=== PATIENT | female | born 1945 | race Caucasian/White ===

== ENCOUNTER 2018-02-07 14:31 | Emergency (ER) | payer MEDICARE, BC ==
[~2018-02-07] VITALS: Ht 154.9 cm; Wt 56.7 kg
[~2018-02-07 14:31] MED LIST: AVONEX30 MCG/0.1 IM; AZATHIOPRINE50 MG PO; AZITHROMYCIN250 MG PO; BACLOFEN10 MG PO; CHERATUSSIN AC118 ML PO; CLARITIN10 M2 PO; CLINDAMYCIN HC300 MG PO; COMBIVENT INH14.7 GM INH; COMBIVENT RESPIM4 GM INH; DIFLUCAN150 MG PO; ESTRADIOL1 MG PO; FUROSEMIDE20 MG PO; HYDROCODON-ACE1 EAC3 PO; IBUPROFEN200 M1 PO; K-TAB10 MEQ; KEFLEX250 MG PO; KLOR-CON 1010 MEQ PO; LEVAQUIN500 MG; LEVAQUIN500 MG PO; LORATADINE10 MG PO; METOCLOPRAMIDE H5 MG PO; MISOPROSTOL200 MCG PO; MUPIROCIN22 GM TOP; NEURONTIN300 MG PO; NEXIUM40 MG PO; NORCO 5-325 TA1 EACH PO; PREDNISONE20 MG PO; PREDNISONE5 MG PO; QVAR7.3 G1 IH; QVAR7.3 G1 INH; REGLAN5 MG PO; SUDOGEST60 MG PO; TRAZODONE HCL150 MG PO; VITAMIN D2000 UNI1 PO; ZITHROMAX250 MG PO
[2018-02-07] MEDS ORDERED: FAMOTIDINE40 MG PO (16:04)
[2018-02-07] MEDS ORDERED: GABAPENTIN300 MG PO (16:05)
[2018-02-07] MEDS ORDERED: ATORVASTATIN CA10 MG PO (16:05)
== END 2018-02-07 16:15 | disposition home or self-care (01) ==
LOC: ED 14:31
DX: S09.90XA Unspecified injury of head, initial encounter (principal); Z87.891 Personal history of nicotine dependence; Z88.2 Allergy status to sulfonamides; Z88.1 Allergy status to other antibiotic agents; Z79.899 Other long term (current) drug therapy; Z79.52 Long term (current) use of systemic steroids; W18.30XA Fall on same level, unspecified, initial encounter
CPT/HCPCS: 70450; 99284

== ENCOUNTER 2018-10-24 11:53 | Emergency (ER) | payer MEDICARE, BC ==
[~2018-10-24] VITALS: Ht 154.9 cm; Wt 58.8 kg
[~2018-10-24 11:53] MED LIST changes: +ACID CONTROL150 MG PO; +ALENDRONATE SOD70 MG PO; +ALEVE220 M1 PO; +ATORVASTATIN CA10 MG PO; +CALCIUM + VITA1 EACH PO; +DILTIAZEM 24HR240 M3 PO; +FAMOTIDINE40 MG PO; +FLUTICASONE PRO16 GM NAS; +GABAPENTIN300 MG PO; +IPRAT-ALBUT 0.5-3 ML INH; +LEVOFLOXACIN250 MG PO; +MAGNESIUM250 M1 PO; +MONTELUKAST SOD10 MG PO; +OLOPATADINE HC2.5 ML OU; +OXYBUTYNIN CHLOR5 M1 PO; +PREDNISONE10 MG PO; +VITAMIN B-122500 MCG PO
--- OUTSIDE RECORDS SUMMARY | 2018-10-24 11:58 | XMS ---
PreManage Notification: MALIHA MAY Security Panelboard Operator Events No recent Security Events currently on file CRITERIA MET - [facility] - 2 Visits in 30 Days CARE PROVIDERS Dann Gonzales MD Primary Care Current PHONE: [phone] ordanilo Case or Magnetic Doctor Current PHONE: Unknown Hero has no Care Guidelines for this patient. Ke VISIT COUNT (12 MO.) [address] [place] [address] TOTAL 3 NOTE: Visits indicate total known visits. ED/UCC VISIT TRACKING (12 MO.) 10/24/2018 11:54 [facility] [place] TYPE: Emergency COMPLAINT: - SOB,RAPID HEARTRATE 09/24/2018 00:02 [facility] [place] TYPE: Emergency COMPLAINT: - ALT LOC 02/07/2018 14:32 [facility] [place] TYPE: Emergency COMPLAINT: - FALL DIAGNOSES: - Unspecified injury of head, initial encounter - Personal history of nicotine dependence - Allergy status to sulfonamides status - Allergy status to other antibiotic agents status - Other senior care (current) drug therapy - Fall on same level, unspecified, initial encounter - terminal carman (current) use of systemic steroids INPATIENT VISIT TRACKING (12 MO.) 09/24/2018 04:[address] [facility] OR TYPE: Medical Surgical COMPLAINT: - SEVERE SEPSIS DIAGNOSES: - Other technician terminal and repeater (current) drug therapy - 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 - Sepsis due to Escherichia coli [E. coli] - Essential (primary) hypertension - Severe sepsis without septic shock - Rheumatic tricuspid insufficiency - Ventricular premature depolarization - Sepsis due to Escherichia coli [E. coli] - Supraventricular tachycardia - Metabolic encephalopathy - Neuromuscular dysfunction of bladder, unspecified - Neuromuscular dysfunction of bladder, unspecified - Essential (primary) hypertension - Atrial premature depolarization - 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 - Metabolic encephalopathy - FPC (current) use of inhaled steroids - Rheumatic tricuspid insufficiency - Allergy status to other antibiotic agents status - FPC (current) use of non-steroidal anti-inflammatories (NSAID) - Allergy status to other antibiotic agents status - Acute kidney failure, unspecified - Multiple sclerosis - Infection and inflammatory reaction due to other urinary catheter, initial encounter - Gastro-esophageal reflux disease without esophagitis - Supraventricular tachycardia - Allergy status to sulfonamides status - Other senior care (current) drug therapy - Acute kidney failure, unspecified - terminal carman (current) use of inhaled steroids - Severe sepsis without septic shock - Sepsis, unspecified organism - terminal carman (current) use of systemic steroids - Ventricular premature depolarization - FPC (current) use of systemic steroids - Atrial premature depolarization - Multiple sclerosis - Allergy status to sulfonamides status - Gastro-esophageal reflux disease without esophagitis - Acute cystitis without hematuria - FPC (current) use of non-steroidal anti-inflammatories (NSAID) - Acute cystitis without hematuria [email or web address]
[2018-10-24] MEDS ORDERED: FAMOTIDINE40 MG PO (14:27)
[2018-10-24] MEDS ORDERED: OMEPRAZOLE20 MG PO (14:27)
[2018-10-24] MEDS ORDERED: LORATADINE10 MG PO (14:28)
[2018-10-24] MEDS ORDERED: AUGMENTIN 875-1 EACH PO (16:04)
--- NOTE | 2018-10-26 00:52 | EKG ---
[facility] [address] [place] [address] Signed Sinus tachycardia Right bundle branch block Cannot rule out Inferior infarct , age undetermined Abnormal ECG When compared with ECG of 24-SEP-2018 04:22, No significant change was found Confirmed by GREG CRUZ MD ([id number]) on 10/26/2018 12:51:58 AM Electronically Signed By: GREG CRUZ MD 10/26/18 0052 PATIENT NAME: MALIHA MAY Electrocardiogram DATE OF : 41 PHYSICIAN: GREG CRUZ MD REPORT #: [id number] REPORT IS CONFIDENTIAL AND NOT TO BE RELEASED WITHOUT AUTHORIZATION
== END 2018-10-24 16:25 | disposition home or self-care (01) ==
LOC: ED 11:53
DX: L08.9 Local infection of the skin and subcutaneous tissue, unspecified (principal); Z87.891 Personal history of nicotine dependence; Z88.2 Allergy status to sulfonamides; Z88.1 Allergy status to other antibiotic agents; Z79.899 Other long term (current) drug therapy; Z79.52 Long term (current) use of systemic steroids
CPT/HCPCS: 51701; 71045; 80053; 81001; 83605; 83880; 84484; 85025; 87040; 87077; 87088; 87186; 87502; 93005; 93010; 96360; 99285-25; J7030

== ENCOUNTER 2018-10-25 22:06 | Inpatient (IN) | payer MEDICARE, BC ==
[~2018-10-25] VITALS: Ht 154.9 cm; Wt 60.0 kg
[~2018-10-25 22:06] MED LIST changes: +AUGMENTIN 875-1 EACH PO; +OMEPRAZOLE20 MG PO
--- OUTSIDE RECORDS SUMMARY | 2018-10-25 22:12 | XMS ---
PreManage Notification: MALIHA MAY Security Boiler Erector Events No recent Security Events currently on file CRITERIA MET - [facility] - 2 Visits in 30 Days CARE PROVIDERS DOTTIE [facility] Hospitalist 10/24/2018-Current PHONE: Unknown Dann Gonzales MD Primary Care Current PHONE: [phone] emily Case or Soft Shoe Dancer Current PHONE: Unknown Hero has no Care Guidelines for this patient. Care History Medical/Surgical 10/24/2018 [facility] - Patient is currently established with [facility]. If patient is seen in the ED during business hours. Please contact CHWs at [facility]. Care Recommendation: This patient has had 5 or more Emergency Department visits in the last 12 months.\T\nbsp; Patient requires education on the scope and purpose of the ED as an acute care provider not a Primary Care Provider and should not be utilized for chronic conditions.\T\nbsp; These are guidelines and the provider should exercise clinical judgment when providing care. E.D. VISIT COUNT (12 MO.) [address] [facility] TOTAL 4 NOTE: Visits indicate total known visits. ED/UCC VISIT TRACKING (12 MO.) 10/25/2018 22:07 [facility] [place] TYPE: Emergency COMPLAINT: - LOC 10/24/2018 11:54 [facility] TYPE: Emergency COMPLAINT: - SOB,RAPID HEARTRATE 09/24/2018 00:02 [facility] [place] TYPE: Emergency COMPLAINT: - ALT LOC 02/07/2018 14:32 [facility] [place] TYPE: Emergency COMPLAINT: - FALL DIAGNOSES: - Unspecified injury of head, initial encounter - Personal history of nicotine dependence - Allergy status to sulfonamides status - Allergy status to other antibiotic agents status - Other plastic joint maker (current) drug therapy - Fall on same level, unspecified, initial encounter - mold yarn supervisor (current) use of systemic steroids INPATIENT VISIT TRACKING (12 MO.) 09/24/2018 04:29 [facility] TYPE: Medical Surgical COMPLAINT: - SEVERE SEPSIS DIAGNOSES: - Other halfway (current) drug therapy - Hypersensitivity pneumonitis due [...] unspecified organic dust - Metabolic encephalopathy - USP (current) use of inhaled steroids - Rheumatic tricuspid insufficiency - Allergy status to other antibiotic agents status - mold yarn supervisor (current) use of non-steroidal anti-inflammatories (NSAID) - Allergy status to other antibiotic agents status - Acute kidney failure, unspecified - Multiple sclerosis - Infection and inflammatory reaction due to other urinary catheter, initial encounter - Gastro-esophageal reflux disease without esophagitis - Supraventricular tachycardia - Allergy status to sulfonamides status - Other plastic joint maker (current) drug therapy - Acute kidney failure, unspecified - mold yarn supervisor (current) use of inhaled steroids - Severe sepsis without septic shock - Sepsis, unspecified organism - mold yarn supervisor (current) use of systemic steroids - Ventricular premature depolarization - USP (current) use of systemic steroids - Atrial premature depolarization - Multiple sclerosis - Allergy status to sulfonamides status - Gastro-esophageal reflux disease without esophagitis - Acute cystitis without hematuria - USP (current) use of non-steroidal anti-inflammatories (NSAID) - Acute cystitis without hematuria [email or web address]
--- NOTE | 2018-10-26 00:56 | EKG ---
[facility] [address] [facility] [place] [address] Signed Poor data quality, interpretation may be adversely affected Normal sinus rhythm Right bundle branch block T wave abnormality, consider inferior ischemia Abnormal ECG When compared with ECG of 24-OCT-2018 12:01, (Unconfirmed) No significant change was found Confirmed by GREG CRUZ MD ([id number]) on 10/26/2018 12:56:11 AM Electronically Signed By: GREG CRUZ MD 10/26/18 0056 PATIENT NAME: MALIHA MAY Electrocardiogram DATE OF : 41 PHYSICIAN: GREG CRUZ MD REPORT #: [id number] REPORT IS CONFIDENTIAL AND NOT TO BE RELEASED WITHOUT AUTHORIZATION
--- NOTE | 2018-10-26 03:10 | NUR ---
PT ARRIVED TO UNIT VIA STRETCHER FROM ED, AT BEDSIDE TO ASSIST WITH INTAKE. PT ORIENTED TO PERSON AND TIME, DISORIENTED TO PLACE AND EVENT. SINUS RHYTHM NOTED ON MONITOR, VITAL SIGNS OBTAINED. PT TOLERATING ROOM AIR, BUL CLEAR, CRACKLES NOTED IN BLL, OCCANSSIONAL NONPRODUCTIVE COUGH NOTED. SPUTUM SAMPLE NEEDED, PT UNABLE TO PRODUCE AT THIS TIME. ABD NON DISTENDED, BOWEL TONES ACTIVE X4, DENIES NAUSEA, REGULAR DIET. CASTILLO CATH IN PLACE DRAINING DILUTE YELLOW URINE. SECONDARY IV SITE PLACED. MELA'D ABX TO BE STARTED. LR INFUSING AT 125 ML/HR. BED ALARM ON AND CURTAIN PULLED FOR CLEAR LINE OF SIGHT.
--- NOTE | 2018-10-26 05:00 | NUR ---
175 ML DILUTE YELLOW URINE NOTED IN CASTILLO CATH, ATTEND IN PLACE. NO ACUTE CHANGES IN ASSESSMENT. VANCO, CEFEPIME, LEVOQUIN, AND LR CONTINUE TO INFUSE, IV SITES WNL.
--- NOTE | 2018-10-26 06:00 | NUR ---
RN IN ROOM TO ASSESS OUTPUT. PT FOUND TO HAVE PULLED CASTILLO CATH OUT. NO BLEEDING OR INJURY NOTED. PT STATES, "I DIDN'T KNOW I HAD THAT IN." REORIENTED PT TO SURROUNDING AND EVENT. DISCUSSED CASTILLO CATH USES AND INSERTION. NEW CASTILLO CATH PLACED, 575 ML URINE NOTED IN NEW BAG. CASTILLO SECURED AND ATTEND PLACED OVER CASTILLO CATH. PT TOLERATED WELL. CONTINUE TO MONITOR FOR CONFUSION. BED ALARM ON.
--- NOTE | 2018-10-26 06:51 | NUR ---
PT TO CONTINUE MELA'D ABX. FLU SWAB COLLECTED AND SENT. SPUTUM CULTURE NEEDED. ENCOURAGE I/S AND DEEP BREATHING. PT DISORIENTED AT TIME AND NEEDS REORIENTION. MONITOR URINE OUTPUT, CASTILLO CATH IN PLACE AND DRAINING WELL.
--- NOTE | 2018-10-26 09:24 | NUR ---
PT UP IN THE CHAIR FOR BKF, ATE FAIR AND VITALY WELL WITH AMBULATION FROM THE BED TO THE CHAIR, PT IS CURRENTLY AT THE BEDSIDE.
--- NOTE | 2018-10-26 10:31 | NUR ---
PT BACK TO BED AT THIS TIME, DID WELL WITH AMBULATION. FAMILY REMAINS AT THE BEDSIDE.
--- NOTE | 2018-10-26 11:01 | NUR ---
PT AND STATE THAT THEY INTEND TO BE DC'D HOME AT THE TIME WHEN SHE IS READY TO GO HOME. THEY HAVE ALSO ASKED ABOUT GETTING A FWW. I WILL WORK ON THIS.
--- NOTE | 2018-10-26 11:13 | NUR ---
UA SENT TO LAB AT THIS TIME.
--- NOTE | 2018-10-26 12:18 | NUR ---
PT EATING LUNCH IN BED AT THIS TIME, CASTILLO DRAINING CLEAR YELLOW URINE WITH GOOD URINE OUTPUT.
--- NOTE | 2018-10-26 12:38 | NUR ---
PT ATE ALL OF HER LUNCH TODAY. SHE IS CURRENTLY WATCHING TV WITH NO C/O'S AT THIS TIME.
--- NOTE | 2018-10-26 12:51 | NUR ---
PT VISITING WITH FAMILY.
--- NOTE | 2018-10-26 12:53 | NUR ---
SPUTUM SAMPLE SENT AT THIS TIME.
[2018-10-26] MEDS ORDERED: LIDOCAINE-PRILO30 GM TOP (14:34)
[2018-10-26] MEDS ORDERED: DICLOFENAC SOD100 G1 TOP (14:36)
--- NOTE | 2018-10-26 15:45 | NUR ---
PT C/O 310 PAIN IN RT HAND, PER REQUEST PT GIVEN 500 MG PO TYLENOL.
--- NOTE | 2018-10-26 15:50 | NUR ---
PT ATE SOME SF [employer] FOR A SNACK. PT SON REMAINS AT THE BEDSIDE. CASTILLO DRAINING DILUTE YELLOW IN COLOR.
--- NOTE | 2018-10-26 17:13 | NUR ---
PT CURRENTLY EATING DINNER A THIS TIME. DR CRUZ INTO SEE PT AND SON REMAINS AT THE BEDSIDE.
--- NOTE | 2018-10-26 17:31 | NUR ---
PT REMAINS IN BED WATCHING A PROGRAM ON HER SON COMPUTOR. PT WAS SALINE LOCKED AND I & O'S COMPLETED AT THIS TIME. EXPLAINED THAT PT WILL BE TRANSFERED AT THE SHIFT CHANGE TO THE M/S UNIT.
--- NOTE | 2018-10-26 19:00 | NUR ---
RECEIVED REPORT FROM CCU NURSE. SHE WILL BRING PT OVER TO THE FLOOR ALONG WITH HER BELONGINGS.
--- NOTE | 2018-10-26 19:15 | NUR ---
REPORT GIVEN TO THE M/S NURSE ALL QUESTIONS ANSWERED. PT TRANSFERED IN HER BED, ALL QUESTIONS ANSWERED AT THIS TIME. PT PERSOANL BELONGINGS CAME WITH THE PATIENT AND HER SON ARE PRESENT WITH THE MOVE.
--- NOTE | 2018-10-26 19:24 | NUR ---
CATHETER CARE COMPLETED, ATTENDS DRY
--- NOTE | 2018-10-26 20:58 | NUR ---
CHARGE NURSE ROUNDING NOTE: AWAKE, NO REQUESTS, NO C/O PAIN, F/C PATENT, VISITING WITH SON, FLUIDS AND CALL LIGHT AT BEDSIDE
--- NOTE | 2018-10-26 22:10 | NUR ---
IN ROOM TO ASSESS PT, SHE IS AWAKE IN BED AND SON IS IN THE ROOM. SHE DENIES PAIN, DIZZINIES, AND N/V. SHE HAS A COUGH BUT STATES IT IS NONPRODUCTIVE. SHE DENIES FURTHER NEEDS AT THIS TIME. CALL LIGHT IS WITHIN REACH.
--- NOTE | 2018-10-27 00:17 | NUR ---
PT IS RESTING WITH EYES CLOSED, RESPIRATIONS ARE EVEN AND NONLABORED. CALL LIGHT IS WITHIN REACH.
--- NOTE | 2018-10-27 01:30 | NUR ---
PT IS RESTING WITH EYES CLOSED, RESPIRATIONS ARE EVEN AND NONLABORED. CALL LIGHT IS WITHIN REACH.
--- NOTE | 2018-10-27 01:58 | NUR ---
VITALS AND I&OS DONE AND CHARTED. PT NEEDS NOTHING ELSE AT THIS TIME. BEDSIDE TABLE AND CALL LIGHT WITHIN REACH.
--- NOTE | 2018-10-27 03:25 | NUR ---
ADMINISTERED MEDICATIONS, PT DENIES PAIN AND NEEDS AT THIS TIME. CALL LIGHT IS WITHIN REACH.
--- NOTE | 2018-10-27 05:48 | NUR ---
IN ROOM TO ADMINISTER IV ABX. PT IS AWAKE IN BED AND SON IS STILL IN THE ROOM. SHE IS LOOKING AT THE MENU FOR BREAKFAST. SHE REQUESTS NASAL SPRAY FOR DRY NOSE. WILL PLACE ORDER, SHE DENIES FURTHER NEEDS. CALL LIGHT IS CLOSE.
--- NOTE | 2018-10-27 06:29 | NUR ---
VITALS AND I&OS DONE AND CHARTED. BEDSIDE TABLE AND CALL LIGHT IN REACH. FRESH WATER GIVEN.
--- NOTE | 2018-10-27 06:36 | NUR ---
ORDERED PT'S BREAKFAST.
--- NOTE | 2018-10-27 07:30 | NUR ---
PATIENT REPORT RECEIVED FROM ALYSSA JOHNSON AT THIS TIME, PATIENT RESTING IN BED WITH ALARM ON AND BED IN THE LOW POSITION AND RAILS UP. CALL LIGHT WITHIN REACH. PATIENT HAS NO QUESTIONS OR CONCERNS AT THIS TIME.
--- NOTE | 2018-10-27 08:10 | NUR ---
PATIENT SITING UP IN CHAIR. IN ROOM. FACE AND HANDS CLEANED. ORAL CARE DONE. LINENS CHANGED. CALL LIGHT WITHIN REACH. NO OTHER NEEDS AT THIS TIME
--- NOTE | 2018-10-27 08:30 | NUR ---
PATIENT 1 PERSON ASSIST WITH FWW TO THE CHAIR FROM THE BED, SHE IS STEADY ON HER FEET WHEN UP WITH THE FWW. PATIENT AMBULATED WELL AND HAD NO C/O PAIN .
--- NOTE | 2018-10-27 09:08 | NUR ---
PATIENT AM MEDICATION GIVEN, CASTILLO EMPTIED FOR 500 MLS OF CLEAR YELLOW URINE, PATIENT HAS NO C/O PAIN AND IS TOLERATING BEING UP IN THE CHAIR WITHOUT ANY COMPLAINTS, SON IS AT BEDSIDE.
--- NOTE | 2018-10-27 09:26 | NUR ---
PATIENT SITING UP IN CHAIR. FAMILY IN ROOM. VITAL SIGNS AND I&O DONE. LOW BLOOD PRESSURE. RN NOTIFIED. ICE WATER GIVEN. CALL LIGHT WITHIN REACH. NO OTHER NEEDS AT THIS TIME
[2018-10-27] MEDS ORDERED: PEPCID40 MG PO (10:24)
--- NOTE | 2018-10-27 10:36 | NUR ---
MED REC COMPLETE WITH PATIENT AND INTERVIEW WITH DR [facility] MEDICATION LIST.
--- NOTE | 2018-10-27 11:21 | NUR ---
PATIENT FINISHED WITH SHOWER PROVIDED TO HER BY THE CARD DOFFER, SHE IS TX BACK TO BED BUT IS VERY SLEEPY, AND SHORT OF BREATH WITH AMBULATION. PATIENT REMAINS ON RA AT THIS TIME AND IS STILL UNABLE TO COUGH ANY PHLEM UP.
--- NOTE | 2018-10-27 11:24 | NUR ---
PATIENT SITING UP IN CHAIR. IN ROOM. PATIENT WALKS TO BATHROOM USING A WALKER AND GATE BELT TO TAKE A SHOWER. ONE PERSON ASSISTING. PATIENT BACKS TO BED. WARM BLANKETS PROVIDED. ICE WATER GIVEN. CALL LIGHT WITHIN REACH. NO OTHER NEEDS AT THIS TIME
--- NOTE | 2018-10-27 12:08 | NUR ---
MET WITH PT'S . THEY LIVE [address] AWAY AND HE TRAVELS BACK AND FORTH EACH DAY. ENCOURAGED HIM TO TAKE CARE OF HIMSELF-HE FEELS PT IS MAKING PROGRESS, HE DID APPEAR TO BE SOMEWHAT DISCOURAGED SHE WAS BACK SO SOON.GAVE ENCOURAGEMENT, WILL FOLLOW NEEDED
--- NOTE | 2018-10-27 13:16 | NUR ---
PT SITTING UP IN CHAIR USING. I.S. AND ACUPELLA. PT ASSESSMENT COMPLETED. PT IS A/OX3 DENIES SOB OR PAIN. PT DENIES NEEDS OR CONCERNS AT THIS TIME. WHITE BOARD IS UP TO DATE. REPORT WAS RECEIVED FROM ELIZABETH COOLEY. PT HAS CALL LIGHT,H20 AND PERSONAL ITEMS WITHIN REACH AND FAMILY IS AT BEDSIDE.
--- NOTE | 2018-10-27 14:13 | NUR ---
PATIENT SITING UP IN CHAIR. FAMILY IN ROOM. VITAL SIGNS AND I&O DONE. CALL LIGHT WITHIN REACH. NO OTHER NEEDS AT THIS TIME
--- NOTE | 2018-10-27 16:00 | NUR ---
PT RESTING IN CHAIR WATCHING TV. FAMILY AT BEDSIDE. FRESH H20 PROVIDED. CALL LIGHT AND PERSONAL ITEMS IN REACH.
--- NOTE | 2018-10-27 16:46 | NUR ---
VISITED WITH PT, DENIES ANY NEW NEEDS OR PROBLEMS, QUESTIONS OR ANYTHING, PT SON IS ALSO PRESENT IN THE ROOM. PT STATES HER NEW FRONT WHEELED WALKER IS HERE WITH HER AND SHE STATES SHE LIKES IT AND IS GREATFUL FOR IT.
--- NOTE | 2018-10-27 17:42 | NUR ---
PATIENT SITING UP IN CHAIR WATCHING TV. VITAL SIGNS AND I&O DONE. CALL LIGHT WITHIN REACH. NO OTHER NEEDS AT THIS TIME
--- NOTE | 2018-10-27 19:26 | NUR ---
RECEIVED REPORT FROM ELIZABETH MILLER. pt SITTING IN CHAIR, VISITOR AT BEDSIDE. CALL LIGHT WITHIN REACH. FRESH WATER PROVIED. WHITEBOARD UPDATED. NO FURTHER REQUESTS AT THIS TIME.
--- NOTE | 2018-10-27 20:23 | NUR ---
ASSESSMENT AND MEDICATIONS DUE. ASSESSMENT DONE. CASTILLO CARE DONE. LUNG SOUNDS COARSE, CLEARED WITH COUGHING AND DEEP BREATHING. IS AND CPT USE DEMONSTRATED. LINENS CHANGED, BED MADE. 1PA, FWW FROM CHAIR TO BED. MEDICATIONS GIVEN (SEE MAR). WATER REFRESHED. pt IN BED WATCHING TV, SON AT BEDSIDE. CALL LIGHT WITHIN REACH. NO FURTHER REQUESTS AT THIS TIME.
--- NOTE | 2018-10-27 21:47 | NUR ---
ABX DUE. INFUSION STARTED (SEE MAR). pt RESTING IN BED WATCHING TV. SON AT BEDSIDE. CALL LIGHT WITHIN REACH. NO FURTHER REQUESTS AT THIS TIME.
--- NOTE | 2018-10-27 23:49 | NUR ---
ROUNDED ON pt. RESTING WITH EYES CLOSED. RESPIRATIONS REGULAR RATE = 18. CALL LIGHT WITHIN REACH.
--- NOTE | 2018-10-28 01:06 | NUR ---
FIXED BEEPING IV PUMP. PT IS RESTING WITH EYES CLOSED, RESPIRATIONS ARE EVEN AND NONLABORED. CALL LIGHT IS CLOSE.
--- NOTE | 2018-10-28 01:20 | NUR ---
ROUNDED ON pt. RESTING WITH EYES CLOSED, RESPIRATIONS REGULAR. IV ABX INFUSING. CALL LIGHT WITHIN REACH.
--- NOTE | 2018-10-28 02:48 | NUR ---
IV PUMP BEEPING. INFUSION FINISHED. LAB COMPLETED VANCO TROUGH DRAW. VANCO INFUSION STARTED (SEE MAR). ASSESSMENT DONE. pt RESTING IN BED. NO REQUESTS AT THIS TIME. CALL LIGHT WITHIN REACH.
--- NOTE | 2018-10-28 05:11 | NUR ---
pt RESTED MOST OF NIGHT, SON AT BEDSIDE. CASTILLO CATHETER, VOIDING QS. 1PA, FWW. IV'S SL, MULTIPLE IV ABX. LUNG SOUNDS COARSE. USES CALL LIGHT APPROPRIATELY.
--- NOTE | 2018-10-28 05:46 | NUR ---
MEDICATION DUE. IV ABX INFUSION STARTED (SEE MAR). IV FLUSHED WELL. pt RESTING WITH EYES CLOSED, RESPIRATIONS REGULAR. CALL LIGHT WITHIN REACH.
--- NOTE | 2018-10-28 06:06 | NUR ---
VITALS AND I&OS DONE AND CHARTED. FRESH WATER GIVEN. GARBAGES EMPTIED, ROOM CLEANED UP. BEDSIDE TABLE AND CALL LIGHT IN REACH. PT NEEDS NOTHING MORE AT THIS TIME.
--- NOTE | 2018-10-28 09:54 | NUR ---
PATIENT ASSISTED INTO THE CHAIR AFTER USING THE TOILET, PATIENT HAD A MEDIUM SIZED BM. SHE REFUSED P.T. AT THIS TIME DUE TO AMBULATING TO THE BATHROOM WITH RN. PATIENT TIRES VERY FAST.
--- NOTE | 2018-10-28 10:10 | NUR ---
IV IN THE RIGHT WRIST DC'D DUE TO LEAKING, TIP INTACT NO SWELLING OR REDDNESS NOTED.
--- NOTE | 2018-10-28 12:44 | NUR ---
PATIENT IV ABX HUNG AND RUNNING, SHE REMAINS UP IN THE CHAIR WITH NO C/O SOB OR PAIN.
--- NOTE | 2018-10-28 13:39 | NUR ---
PATIENT SITTING UP IN CHAIR. DR IN ROOM. VITAL SIGNS AND I&O DONE. CALL LIGHT WITHIN REACH. NO OTHER NEEDS AT THIS TIME
--- NOTE | 2018-10-28 14:41 | NUR ---
PATIENT GIVEN HER AFTERNOON MEDICATION, SHE HAS NO C/O SOB AND REMAINS ON RA. PATIENT WATER FILLED UP AND GIVEN JUICE AT THIS TIME. PATIENT DENIES OTHER NEEDS AND WANTS TO STAY UP IN THE CHAIR.
--- NOTE | 2018-10-28 17:57 | NUR ---
PATIENT SITTING UP IN CHAIR WATCHING TV. IN ROOM. VITAL SIGNS AND I&O DONE. CALL LIGHT WITHIN REACH. NO OTHER NEEDS AT THIS TIME
--- NOTE | 2018-10-28 19:00 | NUR ---
RECEIVED REPORT FROM ELIZABETH SHARIF. pt ALERT AND AWAKE. SON AT BEDSIDE. CALL LIGHT WITHIN REACH. NO REQUESTS AT THIS TIME.
--- NOTE | 2018-10-28 20:31 | NUR ---
ASSESSMENT AND MEDICATIONS DUE. ASSESSMENT DONE. CASTILLO CARE DONE. LUNG SOUNDS COARSE IN LG. EDUCATED ON IS AND CPT USE. IV ABX INFUSING. MEDICATIONS GIVEN (SEE MAR). CALL LIGHT AND POSSESSIONS WITHIN REACH. NO FURTHER REQUESTS AT THIS TIME.
--- NOTE | 2018-10-28 23:12 | NUR ---
IV PUMP BEEPING. ABX INFUSION AND FLUSH FINISHED. SL IV. REFRESHED WATER. CALL LIGHT WITHIN REACH. NO FURTHER REQUESTS AT THIS TIME.
--- NOTE | 2018-10-29 00:10 | NUR ---
RT IN ROOM FOR RESPIRATORY TREATMENT.
--- NOTE | 2018-10-29 02:40 | NUR ---
ROUNDED ON pt. RESTING WITH EYES CLOSED, RESPIRATIONS REGULAR, RATE = 18. CALL LIGHT WITHIN REACH. SON AT BEDSIDE.
--- NOTE | 2018-10-29 04:38 | NUR ---
ROUNDED ON pt. RESTING WITH EYES CLOSED, RESPIRATIONS REGULAR. RATE = 20. CALL LIGHT WITHIN REACH.
--- NOTE | 2018-10-29 05:33 | NUR ---
VITALS AND I&OS DONE AND CHARTED. FRESH ICE WATER GIVEN. CLEANED ROOM AND EMPTIED GARBAGES. BEDSIDE TABLE AND CALL LIGHT IN REACH. PT NEEDS NOTHING AT THIS TIME.
--- NOTE | 2018-10-29 05:34 | NUR ---
MEDICATION DUE. REVIEW COORDINATOR IN ROOM DOING VITALS. IV ABX INFUSING (SEE MAR). ASSESSMENT DONE. CALL LIGHT WITHIN REACH. NO FURTHER REQUESTS AT THIS TIME.
--- NOTE | 2018-10-29 05:35 | NUR ---
pt RESTED MOST OF SHIFT. CASTILLO CATHETER, VOIDING QS. 1PA, FWW. IV'S SL, MULTIPLE IV ABX. LUNG SOUNDS COARSE. USES CALL LIGHT APPROPRIATELY.
--- NOTE | 2018-10-29 07:12 | NUR ---
Bedside report received from ELIZABETH Jang. Call light and fresh h2O in reach. Pt denies further needs or concerns.
--- NOTE | 2018-10-29 07:20 | NUR ---
PATIENT SITTING UP IN BED WATCHING TV. FACE AND HANDS CLEANED. CALL LIGHT WITHIN REACH. NO OTHER NEEDS AT THIS TIME
--- NOTE | 2018-10-29 08:44 | NUR ---
PT SITTING UP IN CHAIR, ASSESSMENT COMPLETED AND AM MEDS ADMINISTERED. PT DENIES NEEDS OR CONCERNS AT THIST TIME. STATES "I HOPE I CAN BE DISCHARGED TODAY OR TOMORROW". CALL LIGHT AND H20 IN REACH.
--- NOTE | 2018-10-29 10:15 | NUR ---
PATIENT SITTING UP IN CHAIR. IN ROOM. VITAL SIGNS AND I&O DONE. LOW DYASTOLIC BLOOD PRESSURE. RN NOTIFIED. CALL LIGHT WITHIN REACH. NO OTHER NEEDS AT THIS TIME
--- NOTE | 2018-10-29 10:46 | NUR ---
PATIENT IN BED. PATIENT WALKS TO SIT ON CHAIR USING A WALKER. ONE PERSON ASSISTING. LINENS CHANGED. CALL LIGHT WITHIN REACH. NO OTHER NEEDS AT THIS TIME
--- NOTE | 2018-10-29 11:14 | NUR ---
PT SITTING UP IN CHAIR WITH FAMILY AT BEDSIDE. CALL LIGHT AND H20 IN REACH. PT APPEARS TO BE IN NO ACUTE DISTRESS. PT STATES "WHEN DO YOU THINK THE DOCTOR WILL BE IN TO SEE ME?" PT INFORMED THAT THE MD PRIORITIZES VISITS BASED ON PATIENT ACUITY AND THAT MD WILL BE IN SOON SHE IS ABLE. NO FURTHER NEEDS OR CONCERNS VOICED.
--- NOTE | 2018-10-29 11:57 | NUR ---
Pt sitting in cahir, fresh ice water provived per pt request. Call light and personal items in reach.
--- NOTE | 2018-10-29 12:33 | NUR ---
Pt resting in chair states "I was feeling cold" temp taken and was WNL at 98.5 (O). Temp was raised to 74 degrees per pt requests and pt given warm blanket. Call light and h20 in reach. Pt states "the doctor hasn't been in is she still comming?" pt assure that MD will make rounds with her once she is able. No furhter requests or concerns voiced. Will notify MD of pt's request to be seen soon.
--- NOTE | 2018-10-29 13:44 | NUR ---
PATIENT SITTING UP IN CHAIR. FAMILY IN ROOM. VITAL SIGNS AND I&O DONE. CALL LIGHT WITHIN REACH. NO OTHER NEEDS AT THIS TIME
--- NOTE | 2018-10-29 14:21 | NUR ---
PT SITTING IN CHAIR VISITING WITH FAMILY. MEDICATIONS ADMINISTERED AND PT PROVIDED WITH 2 GLASSES OF ICE WATER. CASTILLO CONTINUES TO DRAIN QS CLEAR YELLOW URINE. PT EDUCATED ON USE OF I.S. AND ACUPELLA. cALL LIGHT AND PERSONAL ITEMS IN REACH. PT DENIES FURHTER NEEDS OR CONCERNS.
--- NOTE | 2018-10-29 17:29 | NUR ---
Pt resting supine in bed,respirations even and unlabored. Pt remains a/ox4 and denies needs or concerns. call light and h2o in reach.
--- NOTE | 2018-10-29 19:06 | NUR ---
SHIFT REPORT RECEIVED FROM DAYSHIFT ELIZABETH MILLER. PT AWAKE, ON RA, A/OX4. NO NEEDS AT THIS TIME. CALL LIGHT IN REACH.
--- NOTE | 2018-10-29 20:45 | NUR ---
ASSESSMENT COMPLETE. VSS, I&O'S RECORDED. PT A/OX4, BUT WAS BRIEFLY DISORIENTED TO TIME. PT VERBALIZES DISCOMFORT AT CURRENT IV SITE, REDDNESS AND EDEMA NOTED. SITE APPEARS INFILTRATED. IV CATHETER REMOVED BY THIS RN, SITE REINFORCED WITH 2X2 GAUZE AND COBAN. NEW IV PLACED BY SUPERVISOR HARDBOARD MINO IN LEFT FOREARM, SITE PATENT WITH BLOOD RETURN NOTED. IV MAXIPIME RESUMED. RIGHT ARM ELEVATED WITH WARM BLANKET, EDEMA RESOLVING. SCHEDULED MEDICATIONS GIVEN, CASTILLO CATHETER DRAINING QS CLEAR YELLOW URINE. NO FURTHER NEEDS, CALL LIGHT IN REACH.
--- NOTE | 2018-10-29 21:43 | NUR ---
ROUNDED CHARGE. PATIENTS IV HAS INFILTRATED. NEW IV STARTED. PATIENT DENIES ANY COMMENTS, QUESTIONS OR CONCERNS. IV START TOLERATED WELL. PRIMARY RN REMAINS ON THE ROOM. NO FURTHER NEEDS. CALL LIGHT IN REACH.
--- NOTE | 2018-10-29 22:29 | NUR ---
PT AWAKE RESTING IN BED. NEW IV SITE WNL, IV ABX INFUSING. REMOVED IV SITE REMAINS ELEVATED. CALL LIGHT IN REACH. NO FURTHER NEEDS.
--- NOTE | 2018-10-29 23:00 | NUR ---
CASTILLO EMPTIED, PT VOIDING QS. CALL LIGHT IN REACH. RR EVEN AND UNLABORED.
--- NOTE | 2018-10-30 00:30 | NUR ---
CASTILLO EMPTIED, PT VOIDING QS AT THIS TIME. CALL LIGHT IN REACH. RR EVEN AND UNLABORED.
--- NOTE | 2018-10-30 00:45 | NUR ---
PT RESTING COMFORTABLY IN BED, RR EVEN AND UNLABORED. CALL LIGHT IN REACH. CASTILLO CATHETER IN PLACE DRAINING QS DILUTED URINE.
--- NOTE | 2018-10-30 03:50 | NUR ---
ASSESSMENT COMPLETE. PT A/O TO PERSON, PLACE, AND EVENT. PT DENIES PAIN. PT SL, IV SITE WNL. PT DENIES NEEDS, CALL LIGHT IN REACH. CASTILLO CARE COMPLETE, PT VOIDING QS.
--- NOTE | 2018-10-30 04:53 | NUR ---
PT SLEPT FOR MOST OF THE NIGHT. PT A/OX3, DENIED PAIN ALL SHIFT. PT REMAINED IN BED, SELF REPOSITIONED NEEDED. PT AMBULATES 1PA W/ FWW. PT ON REGULAR DIET, TOLERATING WELL NO REPORTS OF NAUSEA. ORIGINAl IV SITE IN RIGHT FOREARM INFILTRATED, EDEMA NOTED. NEW IV PLACED IN LEFT FOREARM, 24 GAUGE, FLUSH SLOWLY. PT SL WHEN NOT RECEIVING IV AXB. CASTILOL CATHETER IN PLACE, PT VOIDING QS. NO BM THIS SHIFT.
--- NOTE | 2018-10-30 06:30 | NUR ---
VSS AND I&O'S RECORDED. IV ABX INFUSING, IV SITE WNL. NO FURTHER NEEDS, CALL LIGHT IN REACH. ROOM TIDED.
--- NOTE | 2018-10-30 08:27 | NUR ---
PT TRANSPORTED TO IMAGING FOR X-RAY VIA WHEELCHAIR.
--- NOTE | 2018-10-30 08:45 | NUR ---
PT RETURNED FROM IMAGING. ASSISTED TO RECLINER. CALL LIGHT WITHIN REACH. DENIES NEEDS OR CONCERNS AT THIS TIME.
[2018-10-30] MEDS ORDERED: LEVOFLOXACIN250 MG PO (09:25)
--- NOTE | 2018-10-30 10:15 | NUR ---
PT REPORTS THAT SHE ATE ALL OF BREAKFAST THIS AM, NADIA WELL. PT DENIES PAIN OR OTHER CONCERNS. ASSISTED PT TO GET DRESSED. IV DC'D, SITE WITHOUT REDNESS OR INFLAMMATION. CASTILLO DC'D. PT WILL CONTINUE SELF CATH AT HOME. PRESENT TO ASSIST AND TAKE PT HOME.
--- NOTE | 2018-10-30 12:08 | NUR ---
PT HEADED RONNY WOMACK READY TO TAKE HER TO CAR. EXTENDED A BLESSING, SHE WAS GRIPPING HANDLES OF WC VERY TIGHTLY FOR SOME REASON. SMILED AND THANKED ME.
== END 2018-10-30 10:41 | disposition home or self-care (01) | DRG 871 ==
LOC: ED 22:06 → CCU 22:08 → MS 10-26 19:11
PROVIDERS: ADMIT Internal Medicine
DX: A41.50 Gram-negative sepsis, unspecified (principal); J15.6 Pneumonia due to other Gram-negative bacteria; G93.41 Metabolic encephalopathy; L03.116 Cellulitis of left lower limb; G35 Multiple sclerosis; N31.2 Flaccid neuropathic bladder, not elsewhere classified; K21.9 Gastro-esophageal reflux disease without esophagitis
CPT/HCPCS: 36415; 51702; 71045; 71046; 80048; 80053; 80202; 81001; 83605; 83735; 83880; 84484; 85025; 87040; 87070; 87088; 87205; 87449; 87502; 87899; 93005; 93010; 94640; 94667; 94668; 96374; 97110; 97116; 97162; 99285-25; J0692; J0696; J1650; J1956; J3370; J7030; J7060; J7512

== ENCOUNTER 2018-11-11 10:59 | Observation (INO) | payer MEDICARE, BC ==
[~2018-11-11] VITALS: Ht 154.9 cm; Wt 57.1 kg
[~2018-11-11 10:59] MED LIST changes: +DICLOFENAC SOD100 G1 TOP; +LIDOCAINE-PRILO30 GM TOP; +PEPCID40 MG PO
--- OUTSIDE RECORDS SUMMARY | 2018-11-11 11:02 | XMS ---
PreManage Notification: MALIHA MAY Security Sales Supervisor Events No recent Security Events currently on file CRITERIA MET - [facility] - 2 Visits in 30 Days CARE PROVIDERS DOTTIE SIU Hospitalist 10/24/2018-Current PHONE: Unknown Dann Gonzales MD Primary Care Current PHONE: [phone] emily Case or [facility] Current PHONE: Unknown Hero has no Care Guidelines for this patient. Care History Medical/Surgical 10/24/2018 [facility] - Patient is currently established with [facility]. If patient is seen in the ED during business hours. Please contact CHWs at [facility]. Care Recommendation: This patient has had [...] providing care. E.D. VISIT COUNT (12 MO.) 5 ARI[facility]NA Barry TOTAL 5 NOTE: Visits indicate total known visits. ED/UCC VISIT TRACKING (12 MO.) 11/11/2018 10:59 [facility] TYPE: Emergency COMPLAINT: - CONFUSION 10/25/2018 22:07 [facility] TYPE: Emergency COMPLAINT: - LOC 10/24/2018 11:54 [facility] TYPE: Emergency COMPLAINT: - SOB,RAPID HEARTRATE DIAGNOSES: - Allergy status to other antibiotic agents status - Personal history of nicotine dependence - Local infection of the skin and subcutaneous tissue, unspecified - MCFP (current) use of systemic steroids - Allergy status to sulfonamides status - Other intermodal dispatcher (current) drug therapy 09/24/2018 00:02 [facility] TYPE: Emergency COMPLAINT: - ALT LOC 02/07/2018 14:32 [facility] TYPE: Emergency COMPLAINT: - FALL DIAGNOSES: - Unspecified injury of head, initial encounter - Personal history of nicotine dependence - Allergy status to sulfonamides status - Allergy status to other antibiotic agents status - Other fdc (current) drug therapy - Fall on same level, unspecified, initial encounter - MCFP (current) use of systemic steroids INPATIENT VISIT TRACKING (12 MO.) 10/26/2018 11:31 [facility] TYPE: Medical Surgical COMPLAINT: - SEPSIS,PNEUMONIA DIAGNOSES: - Multiple sclerosis - Gastro-esophageal reflux disease without esophagitis - Multiple sclerosis - Metabolic encephalopathy - Pneumonia due to other Gram-negative bacteria - Cellulitis of left lower limb - Gastro-esophageal reflux disease without esophagitis - Flaccid neuropathic bladder, not elsewhere classified - Cellulitis of left lower limb - Metabolic encephalopathy - Gram-negative sepsis, unspecified - Flaccid neuropathic bladder, not elsewhere classified - Pneumonia due to other Gram-negative bacteria 09/24/2018 04:29 [facility] TYPE: Medical Surgical COMPLAINT: - SEVERE SEPSIS DIAGNOSES: - Other fdc (current) drug therapy - Hypersensitivity pneumonitis due [...] unspecified organic dust - Metabolic encephalopathy - MCFP (current) use of inhaled steroids - Rheumatic tricuspid insufficiency - Allergy status to other antibiotic agents status - roasterman (current) use of non-steroidal anti-inflammatories (NSAID) - Allergy status to other antibiotic agents status - Acute kidney failure, unspecified - Multiple sclerosis - Infection and inflammatory reaction due to other urinary catheter, initial encounter - Gastro-esophageal reflux disease without esophagitis - Supraventricular tachycardia - Allergy status to sulfonamides status - Other fdc (current) drug therapy - Acute kidney failure, unspecified - MCFP (current) use of inhaled steroids - Severe sepsis without septic shock - Sepsis, unspecified organism - MCFP (current) use of systemic steroids - Ventricular premature depolarization - roasterman (current) use of systemic steroids - Atrial premature depolarization - Multiple sclerosis - Allergy status to sulfonamides status - Gastro-esophageal reflux disease without esophagitis - Acute cystitis without hematuria - MCFP (current) use of non-steroidal anti-inflammatories (NSAID) - Acute cystitis without hematuria [email or web address]
[2018-11-11] MEDS ORDERED: METOPROLOL SUC100 MG PO (15:29)
== END 2018-11-12 10:40 | disposition home or self-care (01) ==
LOC: ED 10:59 → MS 11:00
PROVIDERS: ADMIT Internal Medicine
DX: R40.4 Transient alteration of awareness (principal); J67.9 Hypersensitivity pneumonitis due to unspecified organic dust; G35 Multiple sclerosis; M19.90 Unspecified osteoarthritis, unspecified site; J84.9 Interstitial pulmonary disease, unspecified; I47.1 Supraventricular tachycardia; I07.1 Rheumatic tricuspid insufficiency; K21.9 Gastro-esophageal reflux disease without esophagitis; F51.04 Psychophysiologic insomnia; N31.2 Flaccid neuropathic bladder, not elsewhere classified; N31.9 Neuromuscular dysfunction of bladder, unspecified; I27.20 Pulmonary hypertension, unspecified; Z88.1 Allergy status to other antibiotic agents; Z88.2 Allergy status to sulfonamides; Z79.1 Long term (current) use of non-steroidal anti-inflammatories (NSAID); Z79.83 Long term (current) use of bisphosphonates; Z79.51 Long term (current) use of inhaled steroids; Z79.52 Long term (current) use of systemic steroids; Z79.899 Other long term (current) drug therapy
CPT/HCPCS: 36415; 51702; 71046; 80048; 80053; 81001; 83605; 85025; 96360; 96372; 99285-25; G0378; J1650; J7030; J7500; J7512

== ENCOUNTER 2020-03-25 23:20 | Emergency (ER) | payer MEDICARE, BC ==
[~2020-03-25] VITALS: Ht 154.9 cm; Wt 56.7 kg
[~2020-03-25 23:20] MED LIST changes: +CEPHALEXIN250 MG PO; +ESOMEPRAZOLE MA40 M1 PO; +METOPROLOL SUC100 MG PO; +SUCRALFATE1 GM PO; +TYLENOL EXTRA500 MG PO; +VITAMIN B122500 MC1 PO
--- OUTSIDE RECORDS SUMMARY | 2020-03-25 23:22 | XMS ---
PreManage Notification: MALIHA MAY Security Caustic Mixer Events No recent Security Events currently on file CRITERIA MET - [facility] - Has Care Guidelines - History of Sepsis Dx - [facility] - 2 Visits in 30 Days CARE PROVIDERS DOTTIE REID Internal Medicine 10/24/2018-Current PHONE: Unknown Hero has no Care Guidelines for this patient. Care History Medical/Surgical 03/12/2020 [facility] Patient has ED follow apt with PCP 03/17/2020 at 1:00pm. 11/06/2019 [facility] Patient instructed to follow up with surgeon Dr. Boyd tomorrow. Next scheduled appointment in clinic is 12/18/[address] Jewell and 12/20/[address] Reid 10/24/2018 [facility] - Patient is currently established with [facility]. If patient is seen in the ED during business hours. Please contact CHWs at [facility]. Care Recommendation: If this patient has had 5 or more Emergency Department visits in the last 12 months.\T\nbsp; Patient requires education on the scope and purpose of the ED as an acute care provider not a Primary Care Provider and should not be utilized for chronic conditions.\T\nbsp; These are guidelines and the provider should exercise clinical judgment when providing care. E.D. VISIT COUNT (12 MO.) 3 ARIANNA Barry TOTAL 3 NOTE: Visits indicate total known visits. ED/UCC VISIT TRACKING (12 MO.) 03/25/2020 23:20 [facility] TYPE: Emergency COMPLAINT: - FEVER/URINE PROBLEM 03/08/2020 12:59 [facility] TYPE: Emergency COMPLAINT: - ABD PAIN 11/05/2019 17:01 [facility] TYPE: Emergency COMPLAINT: - FEVER/ NUMBNESS DIAGNOSES: - penitentiary (current) use of systemic steroids - Weakness - Allergy status to sulfonamides status - Allergy status to other antibiotic agents status - Postprocedural fever - Other felt hat inspector and packer (current) drug therapy INPATIENT VISIT TRACKING (12 MO.) 03/08/2020 13:00 [facility] TYPE: Observation COMPLAINT: - DUODENITIS/ABD PAIN DIAGNOSES: - Gastric ulcer, unspecified as acute or chronic, without hemor - Gastro-esophageal reflux disease with esophagitis - Unspecified adrenocortical insufficiency - Multiple sclerosis - Epigastric pain - Esophagitis, unspecified - Allergy status to other antibiotic agents status - Duodenitis without bleeding - Anemia, unspecified - Allergy status to sulfonamides status 09/27/2019 05:41 [facility] TYPE: Surgery DIAGNOSES: [id number]. PARAESOPHAGEAL HERNIA [id number]. Diaphragmatic hernia without obstruction or gangrene [email or web address]
[2020-03-26] MEDS ORDERED: KEFLEX500 MG PO (00:26)
[2020-03-26] MEDS ORDERED: PYRIDIUM200 MG PO (00:26)
== END 2020-03-26 00:48 | disposition home or self-care (01) ==
LOC: ED 23:20
DX: R39.15 Urgency of urination (principal); Z88.2 Allergy status to sulfonamides; Z88.1 Allergy status to other antibiotic agents; Z79.899 Other long term (current) drug therapy
CPT/HCPCS: 81001; 99283

== ENCOUNTER 2020-05-20 09:30 | Day surgery (SDC) | payer MEDICARE, BC ==
[~2020-05-20] VITALS: Ht 154.9 cm; Wt 54.2 kg
[~2020-05-20 09:30] MED LIST changes: +KEFLEX500 MG PO; +PYRIDIUM200 MG PO
--- NOTE | 2020-05-20 12:51 | NUR ---
05/20/20 1251 Liana James 1235- PT TO PACU IN SF POSITION. EYES CLOSED. DOES NOT RESPOND TO VERBAL STIMULI. BREATHING EASY AND UNLABORED SP02 >95% ON 10 L O2 VIA OXYMASK. REPORT RECEIVED FROM CORE CHECKER. 1241- PT AWAKENS TO VERBAL AND TACTILE STIMULI. DENIES PAIN OR NAUSEA. BREATHING EASY AND UNLABORED SPO2 >95%. O2 TITRATED DOWN TO 6 L O2 VIA OXYMASK. 1248- PT REMAINS AWAKE. HOB ELEVATED. PT DENIES PAIN NAUSEA AND DIZZINESS. PRODUCTIVE COUGH PRESENT. SP02 >95%. O2 TITRATED DOWN TO 2 L VIA OXYMASK.
--- NOTE | 2020-05-21 17:09 | PATH ---
[facility] [address] [place], [place] [address] Signed SPECIMEN(S): A LOWER ESOPHAGUS AT 32 CM SPECIMEN SOURCE: A. LOWER ESOPHAGUS AT 32 CM CLINICAL HISTORY: Dysphagia, profound anemia. Postop: Esophageal stricture, possible neoplasm. MICROSCOPIC DESCRIPTION: Histologic sections of all submitted blocks are examined by light microscopy. These findings, together with the gross examination, support the pathologic diagnosis. A CK AE1/3 immunostain is performed on block (A1) with appropriate controls and is negative for occult carcinoma. JVR:[facility] FINAL PATHOLOGIC DIAGNOSIS: Lower esophagus at 32 cm, biopsy: - Granulation-type tissue with acute inflammation and abundant acute inflammatory debris. (See Comment) COMMENT: The sample consists predominantly of acute inflammatory and hemorrhagic debris with focal fragments of granulation-type tissue with abundant acute inflammation. Evidence of viable tumor is not present on these sections. However, if clinical concern, additional sampling could be considered as indicated. JVR:[facility]:C2NR GROSS DESCRIPTION: The specimen, labeled "KH, 1," and designated on the requisition "lower esophagus at 32 cm, stricture assess for malignancy," is received in formalin and consists of multiple aragon-red soft tissue fragment that measure 1.9 x 1.2 x 0.4 cm in aggregate. The specimen is filtered and entirely submitted in cassette (A1). AT (under the direct supervision of a pathologist) The Gross Description was prepared using a voice recognition system. The report was reviewed for accuracy; however, sound-alike word errors, addition and/or deletions may occur. If there is any question about this report, please contact Client Services. PERFORMING LABORATORY: PATIENT NAME: MALIHA MAY PATHOLOGY DATE OF : 41 REPORT #: [id number] PHYSICIAN: DAVID PATHOLOGY PCP: DOTTIE SIU MD REPORT IS CONFIDENTIAL AND NOT TO BE RELEASED WITHOUT AUTHORIZATION [facility] [address], [place] [address] Signed The technical component was performed by [facility], [address] [place] [address] (Patient Carrier: Caitlin Steel MD; CLIA# [id number]). Professional [place] [address] (Patient Carrier: Yonis Casanova M.D.). Diagnostician: Yonis Casanova MD Pathologist Electronically Signed 05/21/2020 Copies: ~ PATIENT NAME: MALIHA MAY PATHOLOGY DATE OF : 41 REPORT #: [id number] PHYSICIAN: DAVID PATHOLOGY PCP: DOTTIE SIU MD REPORT IS CONFIDENTIAL AND NOT TO BE RELEASED WITHOUT AUTHORIZATION
--- NOTE | 2020-05-27 07:48 | OR ---
[facility] [address] [place], [place] [address] Signed DATE OF OPERATION: 05/20/2020 SURGEON: Salvador Maya MD PREOPERATIVE DIAGNOSES: 1. Dysphagia, severe anemia in February 2020, with severe distal esophagitis. 2. History of failed paraesophageal hernia repair x2. POSTOPERATIVE DIAGNOSES: Dense stricture of distal esophagus, hemorrhagic and friable. PROCEDURE: Upper endoscopy. ANESTHESIA: Propofol infusion; Salvador Mahoney CRNA. INDICATION: This 74-year-old white woman is a patient of Dr. Reid and was noted to have severe anemia in February 2020. She underwent upper endoscopy, which showed severe distal esophagitis with what appeared to be a failed laparoscopic Carlton fundoplication. This operation had been performed twice at [facility] for paraesophageal herniation. The patient was treated with Carafate and PPI medication. She has a persistent hematocrit now of 28 and dysphagia somewhat worse than before. She is admitted to undergo upper endoscopy to characterize the progress of her healing from therapy and source of her dysphagia. Notably, upper endoscopy performed previously did pass through the GE junction into the stomach and duodenum. FINDINGS: Near obstruction of the distal esophagus was noted due to friable inflammatory changes. Hemorrhagic friable tissue was noted proximal to the GE junction. Multiple biopsies were obtained. She has definitely had progression of her problem since February. DESCRIPTION OF PROCEDURE: The patient was brought to the endoscopy suite and placed in lateral decubitus position, given intravenous sedation with propofol infusional technique after topical Hurricaine spray hypopharyngeal anesthesia. The Olympus video upper endoscope was passed in the hypopharynx. The vocal cords appeared normal. Scope was advanced to the esophagus. Passes down the esophagus led to an area of narrowing of the distal esophagus with rather friable esophageal mucosa. There did not appear to be a tumor per se, but Electronically Signed By: SALVADOR MAYA MD 05/27/20 0748 PATIENT NAME: MALIHA MAY OPERATIVE REPORT DATE OF : 41 REPORT #: [id number] PHYSICIAN: SALVADOR MAYA MD PCP: OH REID MD REPORT IS CONFIDENTIAL AND NOT TO BE RELEASED WITHOUT AUTHORIZATION [facility] [address] [place], [place] [address] Signed fibrinous exudates. These were somewhat concerning for possible malignant development. Biopsies of the friable tissue were undertaken and attempts at gentle passage of the scope through the area was undertaken, but unsuccessful. Clearly this was a stricture that has developed since seen in February. Rather than perform dilation or other interventions on this stricture, the scope was carefully withdrawn and the patient then taken to recovery room, awakening from sedation. CONCLUDING DIAGNOSIS: Dense stricture of distal esophagus, well biopsied to assess for malignancy or benign findings. PLAN: Consideration will be made for balloon dilation under fluoroscopic control, provided the biopsy does not show malignancy. For now, I have recommended she stay with liquids and Carafate liquid t.i.d. She will see us back in about two weeks and we will review her path report and further considerations for management. MD IVAN Phillip/KHLOE /[id number] cc: Oh Reid MD Copies: OH REID MD ~ Electronically Signed By: SALVADOR MAYA MD 05/27/20 0748 PATIENT NAME: NEDMALIHA RODRIGUEZ DEX OPERATIVE REPORT DATE OF : 41 REPORT #: [id number] PHYSICIAN: SALVADOR MAYA MD PCP: OH REID MD REPORT IS CONFIDENTIAL AND NOT TO BE RELEASED WITHOUT AUTHORIZATION
== END 2020-05-20 13:30 | disposition home or self-care (01) ==
LOC: DS 09:30 → OPS 09:30
PROVIDERS: Surgery
PROC: 0DB38ZX Excision of Lower Esophagus, Via Natural or Artificial Opening Endoscopic, Diagnostic (ICD-10-PCS; principal; 2020-05-20 10:30)
DX: K22.2 Esophageal obstruction (principal); K21.0 Gastro-esophageal reflux disease with esophagitis; D64.9 Anemia, unspecified; G40.909 Epilepsy, unspecified, not intractable, without status epilepticus; J45.909 Unspecified asthma, uncomplicated; G47.30 Sleep apnea, unspecified; Z88.1 Allergy status to other antibiotic agents; Z88.2 Allergy status to sulfonamides; Z79.899 Other long term (current) drug therapy; Z98.890 Other specified postprocedural states
CPT/HCPCS: 88305; 88342; J2704; J7121

== ENCOUNTER 2020-06-27 16:46 | Emergency (ER) | payer MEDICARE, BC ==
[~2020-06-27] VITALS: Ht 154.9 cm; Wt 47.7 kg
[~2020-06-27 16:46] MED LIST changes: +MEMANTINE HCL5 MG PO; +ONDANSETRON HCL4 MG PO
--- OUTSIDE RECORDS SUMMARY | 2020-06-27 16:50 | XMS ---
PreManage Notification: MALIHA MAY Security Toy Parts Former Supervisor Events No recent Security Events currently on file CRITERIA MET - [facility] - Has Care Guidelines - History of Sepsis Dx CARE PROVIDERS DOTTIE REID Internal Medicine 10/24/2018-Current PHONE: Unknown Hero has no Care Guidelines for this patient. Care History Medical/Surgical 03/26/2020 [facility] Patient\T\#39;s spouse stated patient has not been taking meds as she should and is now giving and monitoring them. Patient waiting for lab results and call back from PCP Dr. Reid to determine further treatment options. 03/12/2020 [facility] Patient has ED follow apt with PCP 03/17/2020 at 1:00pm. 11/06/2019 [facility] Patient instructed to follow up with surgeon Dr. Boyd tomorrow. Next scheduled appointment in clinic is 12/18/[address] Jewell and 12/20/[address] Jeanette Dempsey VISIT COUNT (12 MO.) 4 ARIANNA Barry TOTAL 4 NOTE: Visits indicate total known visits. ED/UCC VISIT TRACKING (12 MO.) 06/27/2020 16:47 [facility] TYPE: Emergency COMPLAINT: - CHEST PAIN 03/25/2020 23:20 [facility] TYPE: Emergency COMPLAINT: - FEVER/URINE PROBLEM DIAGNOSES: - Urgency of urination - Allergy status to sulfonamides status - Allergy status to other antibiotic agents status - Urgency of urination - Other superintendent terminal (current) drug therapy 03/08/2020 12:59 [facility] TYPE: Emergency COMPLAINT: - ABD PAIN 11/05/2019 17:01 [facility] TYPE: Emergency COMPLAINT: - FEVER/ NUMBNESS DIAGNOSES: - prison (current) use of systemic steroids - Weakness - Allergy status to sulfonamides status - Allergy status to other antibiotic agents status - Postprocedural fever - Other prison (current) drug therapy INPATIENT VISIT TRACKING (12 [...] Allergy status to sulfonamides status 09/27/2019 05:41 [facility] TYPE: Surgery DIAGNOSES: [id number]. PARAESOPHAGEAL HERNIA 02762. Diaphragmatic hernia without obstruction or gangrene [email or web address]
--- NOTE | 2020-06-28 15:11 | EKG ---
[facility] [address] [place] [address] Signed Normal sinus rhythm Normal ECG When compared with ECG of 14-MAY-2020 11:47, No significant change was found Confirmed by GREG CRUZ MD ([id number]) on 06/28/2020 3:10:48 PM Electronically Signed By: GREG CRUZ MD 06/28/20 1511 PATIENT NAME: MALIHA MAY Electrocardiogram DATE OF : 41 PHYSICIAN: GREG CRUZ MD REPORT #: [id number] REPORT IS CONFIDENTIAL AND NOT TO BE RELEASED WITHOUT AUTHORIZATION
== END 2020-06-27 19:08 | disposition home or self-care (01) ==
LOC: ED 16:46
DX: K22.4 Dyskinesia of esophagus (principal); Z87.891 Personal history of nicotine dependence; Z88.1 Allergy status to other antibiotic agents; Z88.2 Allergy status to sulfonamides; Z79.899 Other long term (current) drug therapy; Z79.52 Long term (current) use of systemic steroids
CPT/HCPCS: 80053; 83690; 84484; 85025; 93005; 93010; 99285-25

== ENCOUNTER 2020-07-21 08:43 | Emergency (ER) | payer MEDICARE, BC ==
[~2020-07-21] VITALS: Ht 154.9 cm; Wt 47.3 kg
[~2020-07-21 08:43] MED LIST changes: +AVONEX PEN30 MCG/0.5 IM; +AVONEX PEN30 MCG/0.5 SUB-Q; +B-121000 MC2 PO; +CARAFATE1 GM PO; +FOLIC ACID1 MG PO; +IBU600 MG PO; +IMURAN50 MG PO; +K-TAB10 MEQ PO; +LASIX20 MG PO; +NAMENDA5 MG PO; +SINGULAIR10 MG PO; +TOPROL XL100 MG PO
--- OUTSIDE RECORDS SUMMARY | 2020-07-21 08:46 | XMS ---
PreManage Notification: MALIHA MAY Security Administrative Specialist Events No recent Security Events currently on file CRITERIA MET - - Has Care Guidelines - History of Sepsis Dx - - 2 Visits in 30 Days CARE PROVIDERS DOTTIE REID Internal Medicine 10/24/2018-Current PHONE: Unknown Hero has no Care Guidelines for this patient. Care History Medical/Surgical 03/26/2020 [facility] Patient\T\#39;s spouse stated patient has not been taking meds as she should and is now giving and monitoring them. Patient waiting for lab results and call back from PCP Dr. Reid to determine further treatment options. 03/12/2020 [facility] Patient has ED follow apt with PCP 03/17/2020 at 1:00pm. 11/06/2019 [facility] Patient instructed to follow up with surgeon Dr. Boyd tomorrow. Next scheduled appointment in clinic is 12/18/[address] Jewell and 12/20/[address] Jeanette Dempsey VISIT COUNT (12 MO.) [address] [facility]. TOTAL 6 NOTE: Visits indicate total known visits. ED/UCC VISIT TRACKING (12 MO.) 07/21/2020 08:43 [facility] TYPE: Emergency COMPLAINT: - WEAKNESS, RAPID HEART RATE 07/07/2020 00:12 [facility] TYPE: Emergency COMPLAINT: - DIFFICULTY WALKING 06/27/2020 16:47 [facility] TYPE: Emergency COMPLAINT: - CHEST PAIN DIAGNOSES: - Personal history of nicotine dependence - assisted (current) use of systemic steroids - Other parts counterman (current) drug therapy - Dyskinesia of esophagus - Chest pain, unspecified - Allergy status to sulfonamides status - Allergy status to other antibiotic agents status 03/25/2020 23:20 [facility] TYPE: Emergency COMPLAINT: - FEVER/URINE PROBLEM DIAGNOSES: - Urgency of urination - Allergy status to sulfonamides status - Allergy status to other antibiotic agents status - Urgency of urination - Other parts counterman (current) drug therapy 03/08/2020 12:59 [facility] TYPE: Emergency COMPLAINT: - ABD PAIN 11/05/2019 17:01 [facility] TYPE: Emergency COMPLAINT: - FEVER/ NUMBNESS DIAGNOSES: - assisted (current) use of systemic steroids - Weakness - Allergy status to sulfonamides status - Allergy status to other antibiotic agents status - Postprocedural fever - Other parts counterman (current) drug therapy INPATIENT VISIT TRACKING (12 MO.) 07/07/2020 00:13 [facility] TYPE: Observation COMPLAINT: - WEAKNESS DIAGNOSES: - Multiple sclerosis - Allergy status to sulfonamides status - Psychophysiologic insomnia - Allergy status to other antibiotic agents status - Gastro-esophageal reflux disease without esophagitis - Contact with and (suspected) exposure to other viral communic - Chronic obstructive pulmonary disease, unspecified - Weakness - 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 - Pulmonary hypertension, unspecified - Supraventricular tachycardia - Neuromuscular dysfunction of bladder, unspecified - Rheumatic tricuspid insufficiency - Hypokalemia 03/08/2020 13:00 [facility] TYPE: Observation COMPLAINT: - DUODENITIS/ABD PAIN DIAGNOSES: - Contact with and (suspected) exposure to other viral communic - Gastric ulcer, unspecified as acute or chronic, without hemor - Gastro-esophageal reflux disease with esophagitis - Unspecified adrenocortical insufficiency - Multiple sclerosis - Epigastric pain - Esophagitis, unspecified - Allergy status to other antibiotic agents status - Duodenitis without bleeding - Anemia, unspecified - Allergy status to sulfonamides status 09/27/2019 05:41 [facility] TYPE: Surgery DIAGNOSES: [id number]. PARAESOPHAGEAL HERNIA 01274. Diaphragmatic hernia without obstruction or gangrene [email or web address]
[2020-07-21] MEDS ORDERED: ONDANSETRON HCL4 MG PO (09:05)
--- NOTE | 2020-07-21 13:14 | EKG ---
[facility] [address] [facility] [place] [address] Signed Normal sinus rhythm Possible Left atrial enlargement Right bundle branch block Abnormal ECG When compared with ECG of 07-JUL-2020 00:43, No significant change was found Confirmed by SUKH LOMAX MD ([id number]) on 07/21/2020 1:14:17 PM Electronically Signed By: SUKH LOMAX MD 07/21/20 1314 PATIENT NAME: MALIHA MAY Electrocardiogram DATE OF : 41 PHYSICIAN: SUKH LOMAX MD REPORT #: [id number] REPORT IS CONFIDENTIAL AND NOT TO BE RELEASED WITHOUT AUTHORIZATION
== END 2020-07-21 16:14 | disposition home or self-care (01) ==
LOC: ED 08:43
DX: R53.1 Weakness (principal); R00.2 Palpitations; I11.0 Hypertensive heart disease with heart failure; I50.9 Heart failure, unspecified; Z88.2 Allergy status to sulfonamides; Z88.1 Allergy status to other antibiotic agents; Z79.899 Other long term (current) drug therapy; Z79.52 Long term (current) use of systemic steroids
CPT/HCPCS: 71045; 80053; 81001; 83690; 83735; 84484; 85025; 93005; 93010; 96360; 99285-25; J7030

== ENCOUNTER 2020-10-14 12:31 | Inpatient (IN) | payer MEDICARE, BC ==
[~2020-10-14] VITALS: Ht 154.9 cm; Wt 31.2 kg
--- OUTSIDE RECORDS SUMMARY | 2020-10-14 12:34 | XMS ---
PreManage Notification: MALIHA MAY Security Die Sinker Events No recent Security Events currently on file CRITERIA MET - [facility] - Has Care Guidelines - History of Sepsis Dx CARE PROVIDERS DOTTIE REID Internal Medicine 10/24/2018-Current PHONE: Unknown Hero has no Care Guidelines for this patient. Care History Medical/Surgical 08/20/2020 [facility] Patient was seen by PCP Dr. Reid on 08/19/2020 at 2:30 pm and was transferred to ED for tachycardia of 154.\T\nbsp; No follow up visit scheduled yet. 03/26/2020 [facility] Patient\T\#39;s spouse stated patient has not been taking meds as she should and is now giving and monitoring them. Patient waiting for lab results and call back from PCP Dr. Reid to determine further treatment options. 03/12/2020 [facility] Patient has ED follow apt with PCP 03/17/2020 at 1:00pm. E.D. VISIT COUNT (12 MO.) [address] [facility] TOTAL 8 NOTE: Visits indicate total known visits. ED/UCC VISIT TRACKING (12 MO.) 10/14/2020 12:32 [facility] [place] TYPE: Emergency COMPLAINT: - WEAKNESS,CONFUSION 08/19/2020 15:02 [facility] [place] TYPE: Emergency COMPLAINT: - HIGH HEART RATE DIAGNOSES: - Allergy status to other antibiotic agents - Other long-term (current) drug therapy - assisted (current) use of systemic steroids - Urinary tract infection, site not specified - Hypertensive heart disease with heart failure - Allergy status to sulfonamides - Tachycardia, unspecified - Dehydration - Heart failure, unspecified 07/21/2020 08:43 [facility] [place] TYPE: Emergency COMPLAINT: - WEAKNESS DIAGNOSES: - Palpitations - assisted (current) use of systemic steroids - Weakness - Heart failure, unspecified - Other rolling attendant (current) drug therapy - Hypertensive heart disease with heart failure - Allergy status to sulfonamides - Allergy status to other antibiotic agents 07/07/2020 00:12 [facility] [place] TYPE: Emergency COMPLAINT: - DIFFICULTY WALKING 06/27/2020 16:47 [facility] [place] TYPE: Emergency COMPLAINT: - CHEST PAIN DIAGNOSES: - Personal history of nicotine dependence - military technology manager (current) use of systemic steroids - Other long-term (current) drug therapy - Dyskinesia of esophagus - Chest pain, unspecified - Allergy status to sulfonamides - Allergy status to other antibiotic agents 03/25/2020 23:20 [facility] [place] TYPE: Emergency COMPLAINT: - FEVER/URINE PROBLEM DIAGNOSES: - Urgency of urination - Allergy status to sulfonamides - Allergy status to other antibiotic agents - Urgency of urination - Other rolling attendant (current) drug therapy 03/08/2020 12:59 [facility] [place] TYPE: Emergency COMPLAINT: - ABD PAIN 11/05/2019 17:01 [facility] [place] TYPE: Emergency COMPLAINT: - FEVER/ NUMBNESS DIAGNOSES: - assisted (current) use of systemic steroids - Weakness - Allergy status to sulfonamides - Allergy status to other antibiotic agents - Postprocedural fever - Other long-term (current) drug therapy INPATIENT VISIT TRACKING (12 MO.) 07/07/2020 00:13 [facility] [place] TYPE: Observation COMPLAINT: - WEAKNESS DIAGNOSES: - Multiple sclerosis - Allergy status to sulfonamides - Psychophysiologic insomnia - Allergy status to other antibiotic agents - Gastro-esophageal reflux disease without esophagitis - Contact with and (suspected) exposure to other viral communicable diseases - Chronic obstructive pulmonary disease, unspecified - Weakness - 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 - Pulmonary hypertension, unspecified - Supraventricular tachycardia - Neuromuscular dysfunction of bladder, unspecified - Rheumatic tricuspid insufficiency - Hypokalemia 03/08/2020 13:00 [facility] [place] TYPE: Observation COMPLAINT: - DUODENITIS/ABD PAIN DIAGNOSES: - Contact with and (suspected) exposure to other viral communicable diseases - Gastric ulcer, unspecified as acute or chronic, without hemorrhage or perforation - Gastro-esophageal reflux disease with esophagitis - Unspecified adrenocortical insufficiency - Multiple sclerosis - Epigastric pain - Esophagitis, unspecified - Allergy status to other antibiotic agents - Duodenitis without bleeding - Anemia, unspecified - Allergy status to sulfonamides [email or web address]
[2020-10-17] MEDS ORDERED: KEFLEX500 MG PO (10:51)
--- NOTE | 2020-10-17 13:19 | CONS ---
[facility] [address], [place] [address] Signed DATE OF CONSULTATION: 10/16/2020 CONSULTING PHYSICIAN: Salvador Maya M.D. REQUESTING PHYSICIAN: Lew Solis M.D. PROBLEM: Anemia. HISTORY OF PRESENT ILLNESS: This 75-year-old white woman is well known to me from the past. She has had at least two laparoscopic Carlton fundoplications at [facility] as I recall and has had failure of them including distal esophagitis and probable slipped Carlton. I have performed upper endoscopy on her back in May, consultation in February of this year for significant anemia. At that time, her hemoglobin was 6.9 (admission hemoglobin 7.9). Notably, she has chronic anemia. Upper endoscopy was performed with dilation on June 05, 2020, which showed a severe distal esophageal stricture. The patient has underlying progressive multiple sclerosis. She is a patient of Dr. Reid. Her admission recently was due to mental status changes and nonresponsiveness. She lives with her in [place], [place], who is very supportive of her, though notably with little insight as to the progressive and relentless nature of her multiple sclerosis unfortunately. She is noted to have dementia also. She presented to the hospital with weakness and confusion, and was admitted by Dr. Solis for further evaluation. Her initial hematocrit was 23.5, subsequently 21.2, though no overt bleeding. No hematemesis. The patient notably has had no dysphagia, while maintained a mechanical soft diet. She has had no nausea or vomiting. No hematemesis obviously. PHYSICAL EXAMINATION: GENERAL: This is a pleasant, sedate white woman, who is actually alert and oriented at this point. Her trachea is midline. She has no hoarseness. Mucous membranes are moist. She is alert and oriented and converses as well as I have ever seen. CHEST: Clear. She has obvious thin body habitus. HEART: Regular. Electronically Signed By: SALVADOR MAYA MD 10/17/20 1319 PATIENT NAME: MALIHA MAY CONSULTATION DATE OF : 41 REPORT #: [id number] PHYSICIAN: SALVADOR MAYA MD PCP: DOTTIE REID MD REPORT IS CONFIDENTIAL AND NOT TO BE RELEASED WITHOUT AUTHORIZATION [facility] [address], [place] [address] Signed ABDOMEN: Soft and nontender. There is no ascites. EXTREMITIES: No edema. VITAL SIGNS: Temperature 99.5, pulse of 70, respirations 20, and blood pressure 164/68. LABORATORY STUDIES: Show white count at admission of 8.2, currently 4.3; hematocrit on presentation 23.5, subsequently 21.2, the patient has undergone blood transfusion, current hematocrit is pending. ASSESSMENT AND PLAN: The patient's anemia is nothing new, it has been an issue since last February at least. The patient is markedly frail with progressive multiple sclerosis. Her anemia was attributed to ulcerative changes related to her esophagitis, and at that time concurrent dysphagia. Esophageal dilation with a balloon dilator to 20 mm (60-Arabic) has been clinically beneficial to her swallowing. I am uncertain as to her last evaluation of the colon for a colonic source of bleeding, though she has had no overt blood per rectum. At this point, given her frailty and her apparent recovery from her presenting symptoms, consideration for transfusion was well founded and transfusion therapy appropriate. One would need to be cautious regarding endoscopic evaluation given her multiple medical issues, but certainly could be performed. I am not certain when her last colonoscopy was, we will have to check records. My review of the hospital record, which does not document colonoscopy, though I vaguely recall that she has had colonoscopy within the past year too, but I am not certain, she does not know either. As she is not having dysphagia, hematemesis, or overt blood per rectum and is less likely a peptic ulcer is a problem, though admittedly her distal esophagitis was significant previously. She has been treated with PPI medication persistently. For now, we will try to gather more information regarding her prior evaluation of the colon from office records as I am able to obtain them. We will continue to follow while in house and if colonoscopy or other endoscopic intervention becomes more urgent, we will certainly be available to do so while in-house. As regard to operative intervention, she would not be a candidate for open operation unless in a desperate situation for bleeding or perforated viscus or something of that sort given her frailty. We will order a pre-albumin to assess her nutritional status, which likely is rather compromised. MD IVAN Phillip/KHLOE Electronically Signed By: SALVADOR MAYA MD 10/17/20 1319 PATIENT NAME: MALIHA MAY CONSULTATION DATE OF : 41 REPORT #: [id number] PHYSICIAN: SALVADOR MAYA MD PCP: DOTTIE REID MD REPORT IS CONFIDENTIAL AND NOT TO BE RELEASED WITHOUT AUTHORIZATION [address] [place] [address] Signed /[id number] cc: MD Lew Osuna MD Copies: DOTTIE REID MD, BRIAN DO ~ Electronically Signed By: SALVADOR MAYA MD 10/17/20 1319 PATIENT NAME: MALIHA MAY CONSULTATION DATE OF : 41 REPORT #: [id number] PHYSICIAN: SALVADOR MAYA MD PCP: DOTTIE REID MD REPORT IS CONFIDENTIAL AND NOT TO BE RELEASED WITHOUT AUTHORIZATION
== END 2020-10-17 12:30 | disposition home or self-care (01) | DRG 689 ==
LOC: ED 12:31 → MS 17:00
PROVIDERS: ADMIT Student in an Organized Health Care Education/Training Program; ATTEND Student in an Organized Health Care Education/Training Program
PROC: 30233N1 Transfusion of Nonautologous Red Blood Cells into Peripheral Vein, Percutaneous Approach (ICD-10-PCS; principal; 2020-10-15)
DX: N39.0 Urinary tract infection, site not specified (principal); G93.41 Metabolic encephalopathy; J67.9 Hypersensitivity pneumonitis due to unspecified organic dust; Z20.828 Contact with and (suspected) exposure to other viral communicable diseases; B96.20 Unspecified Escherichia coli [E. coli] as the cause of diseases classified elsewhere; D64.9 Anemia, unspecified; J84.10 Pulmonary fibrosis, unspecified; F03.90 Unspecified dementia, unspecified severity, without behavioral disturbance, psychotic disturbance, mood disturbance, and anxiety; G35 Multiple sclerosis; K22.2 Esophageal obstruction; Z88.2 Allergy status to sulfonamides; Z88.1 Allergy status to other antibiotic agents; Z79.899 Other long term (current) drug therapy; Z79.52 Long term (current) use of systemic steroids
CPT/HCPCS: 36415; 51701; 70450; 71045; 80048; 80053; 81001; 82607; 82728; 82746; 83540; 83605; 83690; 83735; 84134; 84466; 84484; 85025; 85045; 86850; 86900; 86901; 86920; 87077; 87088; 87186; 92610; 93005; 93010; 94640; 97110; 97116; 97162; 97165; 97530; 99285-25; A9270; C9113; C9803; J0295; J0696; J1650; J2405; J7121; J7512; P9016; U0003

== ENCOUNTER 2020-11-04 14:53 | Emergency (ER) | payer MEDICARE, BC ==
[~2020-11-04] VITALS: Ht 154.9 cm; Wt 45.4 kg
--- OUTSIDE RECORDS SUMMARY | 2020-11-04 14:56 | XMS ---
PreManage Notification: MALIHA MAY Security Solderer Torch Events No recent Security Events currently on file CRITERIA MET - 6 ED Visits in 6 Months - [facility] - Has Care Guidelines - History of Sepsis Dx - [facility] - 2 Visits in 30 Days CARE PROVIDERS DOTTIE REID Internal Medicine 10/24/2018-Current PHONE: Unknown Hero has no Care Guidelines for this patient. Care History Medical/Surgical 08/20/2020 [facility] Patient was seen by PCP Dr. Reid on 08/19/2020 at 2:30 pm and was transferred to ED for tachycardia of 154.\T\nbsp; No follow up visit scheduled yet. 03/26/2020 [facility] Patient\T\#39;s spouse stated patient has not been taking meds as she should and is now giving and monitoring them. Patient waiting for lab results and call back from PCP Dr. Reid to determine further treatment options. 03/12/2020 [facility] Patient has ED follow apt with PCP 03/17/2020 at 1:00pm. E.D. VISIT COUNT (12 MO.) 9 [facility] TOTAL 9 NOTE: Visits indicate total known visits. ED/UCC VISIT TRACKING (12 MO.) 11/04/2020 14:54 [facility] [place] TYPE: Emergency COMPLAINT: - FALL, HEAD AND ARM INJURY 10/14/2020 12:32 [facility] [place] TYPE: Emergency COMPLAINT: - WEAKNESS,CONFUSION 08/19/2020 15:02 [facility] [place] TYPE: Emergency COMPLAINT: - HIGH HEART RATE DIAGNOSES: - Allergy status to other antibiotic agents - Other prison (current) drug therapy - buttermaker helper (current) use of systemic steroids - Urinary tract infection, site not specified - Hypertensive heart disease with heart failure - Allergy status to sulfonamides - Tachycardia, unspecified - Dehydration - Heart failure, unspecified 07/21/2020 08:43 [facility] [place] TYPE: Emergency COMPLAINT: - WEAKNESS DIAGNOSES: - Palpitations - buttermaker helper (current) use of systemic steroids - Weakness - Heart failure, unspecified - Other prison (current) drug therapy - Hypertensive heart disease with heart failure - Allergy status to sulfonamides - Allergy status to other antibiotic agents 07/07/2020 00:12 [facility] [place] TYPE: Emergency COMPLAINT: - DIFFICULTY WALKING 06/27/2020 16:47 [facility] [place] TYPE: Emergency COMPLAINT: - CHEST PAIN DIAGNOSES: - Personal history of nicotine dependence - halfway (current) use of systemic steroids - Other terminal block assembler (current) drug therapy - Dyskinesia of esophagus - Chest pain, unspecified - Allergy status to sulfonamides - Allergy status to other antibiotic agents 03/25/2020 23:20 [facility] [place] TYPE: Emergency COMPLAINT: - FEVER/URINE PROBLEM DIAGNOSES: - Urgency of urination - Allergy status to sulfonamides - Allergy status to other antibiotic agents - Urgency of urination - Other prison (current) drug therapy 03/08/2020 12:59 [facility] [place] TYPE: Emergency COMPLAINT: - ABD PAIN 11/05/2019 17:01 [facility] [place] TYPE: Emergency COMPLAINT: - FEVER/ NUMBNESS DIAGNOSES: - halfway (current) use of systemic steroids - Weakness - Allergy status to sulfonamides - Allergy status to other antibiotic agents - Postprocedural fever - Other terminal block assembler (current) drug therapy INPATIENT VISIT TRACKING (12 MO.) 10/14/2020 17:00 [facility] [place] TYPE: Medical Surgical COMPLAINT: - ALTERED MENTAL STATUS DIAGNOSES: - 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 coli] as the cause of diseases classified elsewhere - Unspecified dementia without behavioral disturbance - Allergy status to sulfonamides - Pulmonary fibrosis, unspecified - Other terminal block assembler (current) drug therapy - Contact with and (suspected) exposure to other viral communicable diseases 07/07/2020 00:13 [facility] TYPE: Observation [...] Anemia, unspecified - Allergy status to sulfonamides [email or web address]
== END 2020-11-04 18:07 | disposition home or self-care (01) ==
LOC: ED 14:53
DX: S51.812A Laceration without foreign body of left forearm, initial encounter (principal); S00.83XA Contusion of other part of head, initial encounter; I11.0 Hypertensive heart disease with heart failure; I50.9 Heart failure, unspecified; Z87.891 Personal history of nicotine dependence; Z88.2 Allergy status to sulfonamides; Z88.1 Allergy status to other antibiotic agents; Z79.899 Other long term (current) drug therapy; W06.XXXA Fall from bed, initial encounter
CPT/HCPCS: 70450; 99283-25

== ENCOUNTER 2021-01-27 11:16 | Inpatient (IN) | payer MEDICARE, BC ==
[~2021-01-27] VITALS: Ht 154.9 cm; Wt 42.9 kg
--- OUTSIDE RECORDS SUMMARY | 2021-01-27 11:20 | XMS ---
PreManage Notification: MALIHA MAY Security Online Marketing Strategist Events No recent Security Events currently on file CRITERIA MET - [facility] - Has Care Guidelines - History of Sepsis Dx CARE PROVIDERS [facility] Internal Medicine 11/05/2020-Current PHONE: Unknown Hero has no Care Guidelines for this patient. Care History Medical/Surgical 11/05/2020 [facility] Appropriate use of ED - head wound due to fall.\T\nbsp; Patient advised to follow up with PCP, Dr. Reid. Spouse having trouble keeping up with caregiving.\T\nbsp; Advised of respite options. 08/20/2020 [facility] Patient was seen by PCP Dr. Reid on 08/19/2020 at 2:30 pm and was transferred to ED for tachycardia of 154.\T\nbsp; No follow up visit scheduled yet. 03/26/2020 [facility] Patient\T\#39;s spouse stated patient has not been taking meds as she should and is now giving and monitoring them. Patient waiting for lab results and call back from PCP Dr. Reid to determine further treatment options. E.D. VISIT COUNT (12 MO.) 9 [facility] TOTAL 9 NOTE: Visits indicate total known visits. ED/UCC VISIT TRACKING (12 MO.) 01/27/2021 11:18 [facility] [place] TYPE: Emergency COMPLAINT: - FALL, BOTH ELBOWS, L LEG SWELLING 11/04/2020 14:54 [facility] [place] TYPE: Emergency COMPLAINT: - FALL, HEAD AND ARM INJURY DIAGNOSES: - Allergy status to sulfonamides - Fall from bed, initial encounter - Contusion of other part of head, initial encounter - Hypertensive heart disease with heart failure - Personal history of nicotine dependence - Other senior living (current) drug therapy - Laceration without foreign body of left forearm, initial encounter - Allergy status to other antibiotic agents - Unspecified injury of head, initial encounter - Heart failure, unspecified 10/14/2020 12:32 [facility] [place] TYPE: Emergency COMPLAINT: - WEAKNESS,CONFUSION 08/19/2020 15:02 [facility] TYPE: Emergency COMPLAINT: - HIGH HEART RATE DIAGNOSES: - Allergy status to other antibiotic agents - Other senior living (current) drug therapy - correction (current) use of systemic steroids - Allergy status to sulfonamides - Urinary tract infection, site not specified - Hypertensive heart disease with heart failure - Allergy status to sulfonamides - Tachycardia, unspecified - Allergy status to other antibiotic agents - Dehydration - Heart failure, unspecified 07/21/2020 08:43 [facility] TYPE: Emergency COMPLAINT: - WEAKNESS DIAGNOSES: - Palpitations - correction (current) use of systemic steroids - Allergy status to sulfonamides - Weakness - Heart failure, unspecified - Other senior living (current) drug therapy - Hypertensive heart disease with heart failure - Allergy status to sulfonamides - Allergy status to other antibiotic agents - Allergy status to other antibiotic agents 07/07/2020 00:12 [facility] TYPE: Emergency COMPLAINT: - DIFFICULTY WALKING 06/27/2020 16:47 [facility] TYPE: Emergency COMPLAINT: - CHEST PAIN DIAGNOSES: - Personal history of nicotine dependence - correction (current) use of systemic steroids - Other senior living (current) drug therapy - Dyskinesia of esophagus - Chest pain, unspecified - Allergy status to sulfonamides - Allergy status to other antibiotic agents 03/25/2020 23:20 [facility] TYPE: Emergency COMPLAINT: - FEVER/URINE PROBLEM DIAGNOSES: - Urgency of urination - Allergy status to sulfonamides - Allergy status to other antibiotic agents - Urgency of urination - Other senior living (current) drug therapy 03/08/2020 12:59 [facility] TYPE: Emergency COMPLAINT: - ABD PAIN INPATIENT VISIT TRACKING (12 MO.) 10/14/2020 17:00 [facility] TYPE: Medical Surgical COMPLAINT: - ALTERED MENTAL STATUS DIAGNOSES: - 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 coli] as the cause of diseases classified elsewhere - Unspecified dementia without behavioral disturbance - Allergy status to sulfonamides - Pulmonary fibrosis, unspecified - Other termite inspector (current) drug therapy - Contact with and [...] Anemia, unspecified - Allergy status to sulfonamides [email or web address]
[2021-01-27] MEDS ORDERED: AZATHIOPRINE50 MG PO (11:43)
[2021-01-27] MEDS ORDERED: CEPHALEXIN500 MG PO (11:43)
[2021-01-27] MEDS ORDERED: AVONEX30 MCG/0.5 IM (11:44)
--- NOTE | 2021-01-27 18:06 | NUR ---
75m year OLD FEMALE PATIENT ADMITTED TO [facility]U VIA STRETCHER UNDER DR THORNTON VIA STRETCHER WITH DX OF SEPSIS SECONDARY TO UTI. PATIENT HAS GLF 2 DAYS AGO AND HAS HAD INCREASED WEAKNESS SINCE THEN, HX OF UTI'S AND IS ON KEFLEX CHRONICALLY. HX OF ANEMIA HGB-6.1, HCT 21.1. PATIENT IS TO RECIEVE ONE UNIT OF PRBC'S. PATIENT WITH HX OF DEMENTIA, MS, CHF, ARTHRITIS. HAS SEVERAL SKIN TEARS TO BILAT UPPER EXTREMITIES, SWELLING TO LLE, US ORDERED. VOIDS TO ATTENDS. ADMISSION PROCESS STARTED.
--- NOTE | 2021-01-27 19:05 | NUR ---
ADMISSION COMPLETE. US OF LLE TO BE DONE THIS PM. O2 INCREASED TO 2 L O2 SAT 88. HAS OCC COUGH. PATIENT TO RECIEVE 1 UNIT PRBC'S THIS EVENING. PATIENT REFUSING PO AT THIS TIME. REPORT TO NEXT SHIFT.
--- NOTE | 2021-01-27 19:45 | NUR ---
PT IS AWAKE, ABLE TO FOLLOW COMMANDS. INC OF LARGE AMT ORANGE URINE. ATTENDS CHANGED. L LEG IS BLUISH PURPLE, COOL AND SWOLLEN. ULTRA SOUND TECH HERE.
--- NOTE | 2021-01-27 20:06 | NUR ---
ULTRASOUND COMPLETE. PT ABLE TO DRINK WATER. DOES HAVE OCC MOIST COUGH. PT IS AWARE SHE IS IN [place], THOUGHT THE DAY WAS TUESDAY BUT DID NOT ANSWER TO QUESTION OF MONTH OR YEAR. HAS MULT SMALL SKIN TEARS ON ARMS. COCCYX AREA HAS SCATTERED SMALL REDDENED AREAS BUT NO BREAK DOWN. TOES ON L FOOT ARE PURPLE AND COLD, ABLE TO HEAR PULSE WITH DOPPLER.
--- NOTE | 2021-01-27 21:05 | NUR ---
BLOOD INFUSING, NO PROBLEMS NOTED.
--- NOTE | 2021-01-27 21:10 | EKG ---
[facility] [address] [facility] [place], [place] [address] Signed Normal sinus rhythm Normal ECG When compared with ECG of 19-AUG-2020 16:13, Previous ECG has undetermined rhythm, needs review Right bundle branch block is no longer present Confirmed by MALDONADO THORNTON DO ([id number]) on 01/27/2021 9:10:46 PM Electronically Signed By: MALDONADO THORNTON DO 01/27/212109 PATIENT NAME: MALIHA MAY Electrocardiogram DATE OF : 41 PHYSICIAN: MALDONADO THORNTON DO REPORT #: [id number] REPORT IS CONFIDENTIAL AND NOT TO BE RELEASED WITHOUT AUTHORIZATION
--- NOTE | 2021-01-27 22:15 | NUR ---
SLEEPING, BLOOD CONT TO INFUSE.
--- NOTE | 2021-01-28 | NUR ---
PT AWAKE AND NOTED TO BE TRYING TO TAKE COVERS OFF TOO WARM. NOTED TO BE INC OF LARGE AMT URINE. BLADDER SCANNED FOR GREATER THAN 560ML. 16 FR CASTILLO INSERTED WITH RETURN OF 800ML CLEAR YELLOW URINE. WILL LEAVE IN FOR NOW TO COMPLETELY DRAIN BLADDER.
--- NOTE | 2021-01-28 01:31 | NUR ---
DR THORNTON CALLED WITH LAB RESULTS. WILL TRANSUSE 2ND UNIT BLOOD.
--- NOTE | 2021-01-28 02:36 | NUR ---
2ND UNIT BLOOD STARTED 0205, PT NADIA WELL.
--- NOTE | 2021-01-28 04:10 | NUR ---
SLEEPING, BLOOD INFUSING.
--- NOTE | 2021-01-28 06:37 | NUR ---
CONT TO SLEEP MOST OF TIME. HIPS FLOATED.
--- NOTE | 2021-01-28 07:30 | NUR ---
PATIENT SHIFT REPORT RECIEVED FROM EXCHANGE SPECIALIST RN. PATIENT RESTING IN BED. PATIENT IS ALERT TO SELF PER REPORT. PER REPROT PATIENT HAS DEMENTIA AD IS FORGETFUL. PER REPORT PATIENTS LEFT LEG IS SIGNIFICANTLY MORE SWOLLEN THAN HER RIGHT LEG. DVT PRESENT IN LEFT LOWER EXTREMITY. EDEMA AND BRUISING NOTED. PER REPORT STAFF HAVE TO USE A DOPPLER FOR LOWER EXTREMITY PULSE. WILL CONTINUE TO CLOSELY MONITOR.
--- NOTE | 2021-01-28 07:40 | NUR ---
RECIEVED REPORT FROM PROFESSOR OF INDUSTRIAL TECHNOLOGY. PT ALSEPP IN BED WITH OXYGEN VIA NASAL CANULA 02 100%. HEAD ELEVATED. NO SIGNS OF DISCOMFORT. CALL LIGHT WITHIN REACH. WILL CONTINUE TO MONITOR CLOSELY.
--- NOTE | 2021-01-28 08:00 | NUR ---
MAHNAZ STUDENT NURSE WITH BE HELPING THIS RN CARE FOR PATIENT.
--- NOTE | 2021-01-28 09:00 | NUR ---
PATIENT RESTING IN BED. PATIENTS LEFT LEG IS COOLER TO THE TOUCH AND PALE WITH ECHYMOSIS NOTED. DOPPLER PULSES ON LEFT LOWER EXTREMITY. LEFT LOWER EXTREMITY IS SWOLLEN AND WITH 2 TO 3+ EDEMA. NO SWELLING NOTED ON RIGHT LOWER EXTREMITY PULSES ARE FAINT. PATIENTS HANDS COLD AT TIMES AND SPO2 MONITOR DOES NOT HAND INSPECTOR WELL WHEN THEY ARE COOL. PLACED HANDS IN A WARM BLANKET AND PATIENTS SPO2 100% ON RA. PATIENTS BOWEL TONES ARE ACTIVE. BREATH SOUNDS CLEAR AND DIMINISHED. PATIENT RR MID 30'S AND SHALLOW. PATIENTS ALERT TO SELF AND PLACE AT THIS TIME. PER REPROT PATIENT HAS A BASELINE OF DEMENTIA. PATIENT HAS NOT ATTEMPTED TO GET OUT OF BED. PATIENT IS WEAK. NO OTHER NEEDS AT THIS TIME. WILL CONTINUE TO CLOSELY MONITOR.
--- NOTE | 2021-01-28 10:00 | NUR ---
MD THORNTON IN TO SEE PATIENT. UPDATED ON PATIENTS CASTILLO PLACEMENT FROM THE [employer]. MD MARTELL. ALL QUESTIONS ANSWERED. WILL CONTINUE TO CLOSELY MONITOR.
--- NOTE | 2021-01-28 10:30 | NUR ---
Spoke with Tennille and spouse Burt. They cont. to live 10 miles from [place], Pt is no longer able to walk or eat. She takes ensure only. Pt. uses a lift chair, spouse states he holds on the back of her pants for transfers, but pt no longer walks or pivot transfers. I again state my concern as spouse leaves pt alone and drives to town. He cont. to state he cannot find a cg for his . He also states pt is able to self cath, but Per ot and myself we do not believe pt is able to do so. Please see OT not. They are awaiting word from [facility] as they cont. to want a work up, pt had test at [facility] two weeks ago which were not completed due to pt not able to tolerate. Pt also has an appt with Dr. [facility] the end of February.
--- NOTE | 2021-01-28 11:00 | NUR ---
PATIENT HAD A LOOSE INCONT. BM. TALI STUDENT IN TO ASSIST PATIENT WITH BM AND CLEANING UP PATIENT. PATIENT NOW RESTING IN BED. WILL CONTINUE TO CLOSELY MONITOR.
--- NOTE | 2021-01-28 14:25 | NUR ---
CALLED INTO PATIENTS ROOM, THIS RN AT BEDSIDE. PATIENT REQUESTING "I NEED HELP." WHEN ASKED PATIENT WHAT SHE WOULD LIKE HELP WITH PATENT APPEARS CONFUSED AND STATES "MY HAND." PATIENT REPOSITIONED FOR COMFORT. PATIENT POINTS TO THE END OF THE BED, STATES "THAT CHAIR IS TOO TALL." INFORMED PATIENT THAT WAS THE FOOT OF BED, BLANKETS REMOVED FROM END OF BED. PATIENT UNABLE TO VERBALIZE ANY FURTHER NEEDS AT THIS TIME. ALL SIDE RAILS IN PLACE, CALL LIGHT IN REACH. WILL CONTINUE TO MONITOR PATIENT.
--- NOTE | 2021-01-28 14:45 | NUR ---
PATIENT REPOSITIONED WITH PILLOW SUPPORT. HEEL PROTECTORS APPLIED TO PATIENT. TURNED THE TV ON PER PATIENT REQUEST. VITALS STABLE. WILL CONTINUE TO CLOSELY MONITOR.
--- NOTE | 2021-01-28 14:57 | NUR ---
PT RATHER QUIET, MOSTLY ONE WORD ANSWERS TO QUESTIONS. PT SEEMED UNEASY WITH MY PRESENCE. GAVE BLESSING, WILL FOLLOW NEEDED
--- NOTE | 2021-01-28 15:45 | NUR ---
CALLED MD NORBERTO TEJEDA HE SAW LABS PRIOR TO WRITTING TRANSFER ORDERS. PER MD LABS REVIEWED AND PATIENT IS NOW OKAY TO TRANSFER TO [facility]. NO OTHER ISSUES AT THIS TIME. WILL CALL PATIENTS PER PATIENT REQUEST AND UPDATE THAT SHE WILL TRANSFER TO ANOTHER ROOM.
--- NOTE | 2021-01-28 15:48 | NUR ---
REPORT RECIEVED FROM ELIZABETH CH, IN CCU.
--- NOTE | 2021-01-28 16:00 | NUR ---
REPORT CALLED TO STEPAN JOHNSON ON [employer]. REVIEWED PATIENTS CONDITION AND HOSPITALIZATION. ALL QUESTIONS ANSWERED. WILL BRING PATIENT OVER IN HER BED TO ROOM 119. WILL CONTINUE TO CLOSELY MONITOR.
--- NOTE | 2021-01-28 16:01 | NUR ---
PT ASSESSMENT COMPLETE. PT IS VERT FLAT AND ANSWERS MOSTLY WITH ONE OR TWO WORDS. PT READJUSTED IN THE BED AND HEAED ELEVATED. PT ORIENTED TO PERSON PLACE AND DAY. SWOLLEN LOWER LEFT EXTREMITY WITH BRUISING. PT REPORTS PAIN AT A 3 IN LOWER LEFT EXTREMITY. PT RECIEVED PHONE CALL FROM SON. GETTING READY TO TRANSFER PT TO MED\SURG DEPARTMENT. PT HAS A TEMP OF 99.0. NO OTHER CONCERNS AT THIS TIME.
--- NOTE | 2021-01-28 16:20 | NUR ---
PATIENT TRANSFERED TO ROOM 119 WITH THISRN AND STUDENT RN MAHNAZ. STEPAN JOHNSON AND CHARITY JEFFERSON AT THE BEDSIDE UPON TRANSFER. REVIEWED STATUS OF PATIENTS LEGS AND COLORATION WITH STAFF. ALL QUESTIONS ANSWERED. UPDATED ON PLAN OF CARE. NO OTHER NEEDS AT THIS TIME. BED ALARM ON FOR PATIENTS SAFETY.
--- NOTE | 2021-01-28 16:35 | NUR ---
PATIENT IS RESTING COMFORTABLY IN BED SINCE ARRIVING FROM CCU. IVF INFUSING TO LEFT ARM. PATIENT DOES ENDORSE SOME CHRONIC STOMACE PAIN. LLE IS BRUISED, 3+ PITTING EDEMA, ELEVATED ON PILLOW, DOPPLER NEEDED TO CHECK PULSE.
--- NOTE | 2021-01-28 16:53 | NUR ---
PT ASSESSMENT COMPLETE. PT LAYING IN BED WITH HEAD ELEVATED AND LEGS ON A PILLOW. IS SITTING AT THE BEDSIDE WAITING FOR THE DOCTOR TO ARRIVE. HEATED BLANKET PLACED ON PT WHO REPORTS BEING COLD. PT VERY QUIET AND ANSWERS IN A FLAT TONE. NO OTHER CONCERNS AT THIS TIME. WILL CONTINUE TO MONITOR CLOSELY.
--- NOTE | 2021-01-28 18:02 | NUR ---
PATIENT AWAKE IN BED, VITALS AND I&OS CHARTED. CASTILLO EMPTIED, PERSONAL ITEMS AND CALL LIGHT IN REACH
--- NOTE | 2021-01-28 18:43 | NUR ---
PATIENT IS RESTING IN BED, DENIES NEEDS AT THIS TIME.
--- NOTE | 2021-01-28 19:30 | NUR ---
SHIFT REPORT COMPLETE TO THIS RN. PATIENT RESTING IN BED. PATIENT ORIENTED TO PERSON ONLY. CALL LIGHT IN REACH. NO CURRENT PATIENT NEEDS.
--- NOTE | 2021-01-28 21:15 | NUR ---
ASSISTED ELIZABETH STONER TO REPOSITION pt. STOOL NOTED, ATTENDS CHANGED. STAGE TWO PRESSURE SORE NOTED ON RIGHT SIDE OF SPINE AND REDDENED AREA ON COCCYX WITH STAGE TWO AREAS WITHIN REDDENED AREA. SITES CLEANED, CONSENT FOR PICTURES OBTAINED AND PICTURES IN CHART. ALLEVYNS PLACED. pt DENIES ANY PAIN ON BACKSIDE. REPOSITIONED TO SIDE LYING ON RIGHT SIDE WITH PILLOW BEHIND LEFT HIP, BACK. HEEL PROTECTORS IN PLACE.
--- NOTE | 2021-01-28 21:15 | NUR ---
PATIENT TURNED TO THE RIGHT SIDE AFTER CLEANING UP A SMALL AMOUNT OF STOOL AND APPLYING NEW ATTENDS. PATIENT ALSO HAD A LARGE COCCYX AREA ALLEVYN AND RIGHT UPPER BACK ALLEVYN APPLIED FOR SMALL STAGE 2 PRESSURE ULCERS. THESE AREAS WERE CLEANED AND THE ALLEVYN DRESSINGS APPLIED NO DRAINAGE NOTED. PHOTO CONSENT SIGNED AND PHOTO'S TAKEN AND IN THE CHART. PATIENT'S WATER REFILLED AND GIVING EVEING MEDS. TYLENOL WAS REQUESTED EVEN THOUGH PATIENT DENIES PAIN AT THIS TIME. CALL LIGHT IS IN REACH.
--- NOTE | 2021-01-28 23:00 | NUR ---
PATIENT RESTING QUIETLY, EYES CLOSED, RESPIRATIONS REGULAR AND EVEN, CALL LIGHT IN REACH.
--- NOTE | 2021-01-29 00:30 | NUR ---
PATIENT WAS ASLEEP AND WOKE UP FOR TURNING. PATIENT TURNED TO HER LEFT SIDE DENIES PAIN. STAT LOCK PLACED ON RIGHT LEG FOR CASTILLO. GINO JEFFERSON ASSISTING IN ROOM. PATIENT GIVEN A WARM BLANKET. NO OTHER NEEDS AT THIS TIME. CALL LIGHT IN REACH.
--- NOTE | 2021-01-29 02:30 | NUR ---
PATIENT DENIES PAIN AND WAS REPOSITIONED TO HER RIGHT SIDE WITH THIS RN AND HELP OF GINO JEFFERSON. CALL LIGHT IN REACH.
--- NOTE | 2021-01-29 04:35 | NUR ---
PATIENT WAS REPOSITIONED AGAIN AND FLOATED UP OFF HER BOTTOM WITH PILLOWS BY THIS RN AND RONNY CHRISTIAN. PATIENT HAS NO OTHER CARE NEEDS AT THIS TIME. CALL LIGHT IS IN REACH.
--- NOTE | 2021-01-29 05:37 | NUR ---
PATIENT TURNED THROUGHOUT THE NIGHT AND PATIENT HAS DENIED PAIN ALL NIGHT. PATIENT JUST TURNED TO HER RIGHT SIDE. PATIENT REMAINS OFF O2 AND HAS SATS IN THE 90'S ALL NIGHT. PATIENT HAD 1BM SO FAR THIS SHIFT. ALLEVYN DRESSING'S PLACED OVER STAGE #2 ULCERS ONE ON EACH SIDE OF THE TOP OF INTERGLUTEAL CLEFT AND ONE PLACED OVER A SMALL STAGE #2 ULCER ON THE UPPER RIGHT SIDE OF THE BACK, JUST OFF TO THE SIDE OF THE SPINE. PATIENT'S CASTILLO HAS HAD GOOD URINE OUTPUT. PATIENT HAS BEEN SLEEPING EXCEPT FOR WHEN STAFF IS IN THE ROOM OR SHE CALLS. CALL LIGHT IS IN REACH.
--- NOTE | 2021-01-29 06:30 | NUR ---
THIS LABORATORY PHLEBOTOMIST CLEANED PATIENT FROM HAVING LARGE HARD BOWEL MOVEMENT. PATIENT REPOSITIONED. CALL LIGHT WITHIN REACH. PATIENT IS WATCHING TV.
--- NOTE | 2021-01-29 08:00 | NUR ---
REPORT RECEIVED FROM NIGHT RN AND PT. CARE RESUMED. PT IS ALERT AND ORIENTED TO ALL BUT DATE AND EVENT. FLAT AFFECT AND SLOW TO RESPOND. IV SITE WNL AND FLUSHED WELL. CASTILLO CATH. DRAINING WELL. +3 PITTING EDEMA PRESENT IN LLE. EXTREMITY IS COOL TO TOUCH. DOPPLER USED TO ASSESS PULSE. LUNGS DIM. IN RLL. SENIOR POLICY ASSOCIATE REPORTS A SKIN TEAR OCCURRED RIGHT FOREARM WITH TRANSFER. PHOTOS TAKE OF SKIN TEARS ON RT. FOREARM AND DRESSED WITH ALLEVYN. PT. U.S. SENATOR STRENGTH IS VERY WEAK BUT EVEN. BOWEL TONES ACTIVE AND PT. DENIES PAIN. PT. LEFT RESTING IN BED WITH CALL LIGHT IN REACH.
--- NOTE | 2021-01-29 08:00 | NUR ---
Patient got up to chair with stand pivot transfer. Skin tear noticed and RN notified. Water refreshed. Linens changes. Call light in reach. No further needs at this time.
--- NOTE | 2021-01-29 09:13 | NUR ---
PATIENT IS UP TO THE CHAIR, ENDORSES HAVING HAD BREAKFAST. PATIENT GIVEN SQ LOVENOX GIVEN TO LEFT ABDOMEN. PATIENT GIVEN WARM BLANKET. D/C CARDING UTILITY TENDER MATEO IN TO SEE PATIENT.
--- NOTE | 2021-01-29 09:30 | NUR ---
NOte entered by Charito Ulola Student Nurse. Spoke with Summer from [facility], Maximilian from OT and Geri from CM contacted summer due to pt being unable to speak for herself. per summer, pt has severe dementia, assistence with dressing and personal care, feeds self when tray is set up, reads and socializes, incontinant, 1 person assist. Pasted into notes by BATSHEAV JOHNSON
--- NOTE | 2021-01-29 10:10 | NUR ---
Spoke with Tennille. Feels better. She and her spouse agree pt would benefit from SNF for rehab. Dr. Solis discussed this with pt. Pt given options of SNFs in 3 neighboring [facility] given. Pt would like to remain in town at [place]. Will fax chart to [facility] to check for beds.
--- NOTE | 2021-01-29 12:26 | NUR ---
MD NOTIFIED REGARDING SKIN TEAR THIS SHIFT AND PRESSURE ULCERS. WOUND NURSE CONSULT ORDERED. CALL PLACED TO DAY SURGERY TO NOTIFY REGARDING CONSULT. AWAITING CALL BACK
--- NOTE | 2021-01-29 13:30 | NUR ---
Received response from [facility]. No bed availability until end of next week. Per Dr. Solis, pt may dc tomorrow if no change. Spoke with spouse and pt, 1st choice is [facility] [place], [facility], [facility] in [place]. Will check for bed availability.
--- NOTE | 2021-01-29 13:45 | NUR ---
ORDER RECEIVED FOR WOUND CONSULT. EMR REVIEWED. PATIENT AND HER SPOUSE INTERVIEWED. SPOUSE REPORTS BEING PATIENT'S CAREGIVER AND THAT HER SKIN IS "VERY FRAGILE." SPOUSE REPORTS PLACING BANDAIDS ON PATIENT'S SKIN TEARS AT HOME "BECAUSE THAT'S ALL I HAD." BANDAIDS ARE CAREFULLY REMOVED USING WOUND CLEANSER AND ADHESIVE REMOVER. PATIENT TOLERATES THIS WELL. DRESSINGS APPLIED PER ORDERED. RIGHT FOREARM ALLEVYN GENTLE BORDER IS IN PLACE AND IN GOOD CONDITION. I DO NOT REMOVE THIS DRESSING AT THIS JUNCTURE. DRIED SCAB IS NOTED ON THE LEFT UPPER ARM. THIS SITE APPEARS TO BE A HEALING SKIN TEAR. NO DRESSING APPLIED AT THIS SITE AT THIS JUNCTURE. ALLEVYN DRESSING IS REMOVED FROM THORACIC SPINE EVEN THOUGH IT IS CLEAN, DRY AND IN TACT. STAGE II PRESSURE ULCER REVEALED UNDER ALLEVYN. THIS DRESSING IS REPLACED. SACRAL ALLEVYN DRESSING IS IN PLACE OVER COCCYX WOUNDS AND IS CLEAN, DRY AND IN TACT. THIS DRESSING IS NOT REMOVED AT THIS JUNCTURE. ALL DRESSINGS SHOULD BE CHANGED ON TUESDAY/Q 72 HOURS OR PRN INSTABILITY/SATURATION. PATIENT TOLERATES THIS VISIT IN ITS ENTIRETY. VERBAL REPORT IS GIVEN TO ELIZABETH MARTINS AND PATIENT'S SPOUSE'S QUESTIONS ARE ANSWERED.
--- NOTE | 2021-01-29 15:00 | NUR ---
Spoke with Ashlie from [facility]. They do have beds and she did receive the chart I faxed. Will review and let me know if they can accept tomorrow if there is no change.
--- NOTE | 2021-01-29 15:29 | NUR ---
PATIENT RESTING IN BED AND POSITIONED ON PILLOW TO HER LEFT SIDE. PT. DENIES PAIN. EXP. WHEEZE AUSC. IN RLL. LT. LEG HAS NO VISIBLE CHANGE- +2 PITTING EDEMA, ECCHYMOTIC, AND DOPLER USED TO DETECT PEDAL PULSE. PT. ORIENTED TO PERSON AND PLACE. IV SITE WNL W/ IVF RUNNING. PT. LEFT RESTING IN BED WITH CURTAIN OPEN, BED ALARM ON, AND CALL LIGHT IN REACH.
--- NOTE | 2021-01-29 15:56 | NUR ---
DISCUSSED PATIENT'S PRESSURE INJURIES WITH . HE STATED HE IS HER PRIMARY CAREGIVER AT HOME AND SPENDS APPROX. 12HRS A DAY IN A HOSPITAL BED AND THE REST IN A RECLINER. HE STATED HE HAS NOT BEEN LOOKING AT HER BACK. EDUCATED HIM ON REPOSITIONING PILLOWS Q2H AND CHECKING SKIN.
--- NOTE | 2021-01-29 16:40 | NUR ---
PT. HERE FOR WEAKNESS, METABOLIC ENCEPHALOPATHY, AND DVT TO LEFT LEG . BEDBOUND AT BASELINE WITH MINIMAL WALKING WITH FWW. STATES SHE SPENDS 12 HRS OR MORE IN BED AND OTHERWISE IN RECLINER. STAGE II PRESSURE INJURIES ON COCYX AND THORACIC SPINE DRESSED WITH ALLEVYN. SKIN TEARS AND ABRASIONS ON ARMS. PLEASE SEE ORDERS FOR WOUND DRESSINGS. NO TAPE OR ADHESIVE DRESSING ON PT. PT. SLOW TO RESPOND AND FORGETFUL. HX DEMENTIA. IV SITE WNL AND FLUSHES. TURN PT. Q2H. ON A FULL LIQUID DIET DUE TO GI HX. SHE LIKES APPLE ENSURES, BUT NOT SHAKE ENSURES. +2 EDEMA PRESENT IN LT LEG. CASTILLO PATENT AND DRAINING CLEAR YELLOW URINE.
--- NOTE | 2021-01-29 19:05 | NUR ---
SHIFT REPORT RECIEVED FROM DAYSHIFT RN ELIEZER AT BEDSIDE, pt AWAKE AND RESTING IN BED. LR INFUSING AT 75MLS/HR, SITE WNL. BOARD UPDATED, RT [place] IN ROOM TO COMPLETE ORDERED COVID SWAB. NO FURTHER NEEDS, CALL LIGHT IN REACH.
--- NOTE | 2021-01-29 19:14 | NUR ---
PT WAS SWABBED FOR COVID 19 FULL PPE DONNED SAMPLE SENT TO LAB
--- NOTE | 2021-01-29 20:15 | NUR ---
IV BEEPING, NEW BAG IV FLUIDS HUNG AND INFUSING PER MD ORDERS, SITE WNL. pt REPOSITIONED IN BED, PILLOW PLACED UNDER LEFT HIP, BILATERAL HEEL PROTECTORS REMAIN IN PLACE. NO FURTHER NEEDS, CALL LIGHT IN REACH.
--- NOTE | 2021-01-29 22:30 | NUR ---
ASSESSMENT COMPLETE, SCHEDULED MEDS GIVEN (SEE EMAR). pt A/O, VSS. IV FLUIDS INFUSING, SITE WNL AND FLUSHES EASILY. WHILE ASSESSING BACK/BUTTOCKS WOUNDS, SMALL PEPPLE BM NOTED. RITA CARE DONE AND NEW ATTENDS IN PLACE. pt REPORTS 3/10 PAIN, SCHEDULED MEDS GIVEN, SEE EMAR. LEFT PEDAL PULSE EASILY OBTAINED VIA DOPPLER. BILATERAL HEEL PROTECTORS REMAIN IN PLACE. NO FURTHER NEEDS, CALL LIGHT IN REACH.
--- NOTE | 2021-01-29 22:34 | NUR ---
PT VS DONE, CASTILLO CARE DONE. REPOSITIONED PT, FLOATING SUPINE. NO FURTHER ASSISTANCE NEEDED AT THIS TIME.
--- NOTE | 2021-01-30 00:33 | NUR ---
IN TO TURN PT WITH PILLOW UNDER LEFT HIP, PT TOOK SIPS OF WATER, NO FURTHER NEEDS AT THIS TIME
--- NOTE | 2021-01-30 00:50 | NUR ---
PT CALLED OUT, IN TO ASST PT, PT STUGGLED USING CALL LIGHT, PT JUST NEEDED HOB AJUSTED AND ARM SOCK PULLED UP, NO FURTHER NEEDS
--- NOTE | 2021-01-30 02:40 | NUR ---
IN WITH RN TO TURN PT, EMPTIED CASTILLO AT THIS TIME, NO FURTHER NEEDS AT THIS TIME
--- NOTE | 2021-01-30 02:45 | NUR ---
IN ROOM TO REPOSITION pt, WITH HELP FROM [employer]ER[employer] OPERATOR KATHRYN PILLOW PLACED UNDER RIGHT SHOULDER AND HIP ALONG WITH LEFT ARM. NO NEW CHANGES OR CONCERNS. CALL LIGHT IN REACH.
--- NOTE | 2021-01-30 05:00 | NUR ---
PT REPOSITIONED TO THE RIGHT SIDE WITH PILLOW SUPPORT, VS DONE, I/OS DONE. NO FURTHER ASSISTANCE AT THIS TIME.
--- NOTE | 2021-01-30 05:16 | NUR ---
PT HAD AN UNEVENTFUL NIGHT, SLEPT ON AND OFF THIS SHIFT. pt A/O, BUT SLOW TO RESPOND AT TIMES. PAIN CONTROLLED WITH PRN PAIN MEDS. VSS, TURNED Q2H. WOUUND CARE ORDERS PER RECOVERY UNIT OPERATOR. WC BOUND AT BASELINE. RECIEVING IV FLUIDS, SITE WNL.NO NAUSEA REPORTED, TOLERATING FULL LIQUID DIET. BILATERAL HEEL PROTECTORS IN PLACE, RECEIVING SUBQ ENOXAPARIN FOR BLOOD CLOT IN LEFT LEG, PEDAL PULSE OBTAINED VIA DOPPLER.
--- NOTE | 2021-01-30 06:33 | NUR ---
PT REPOSITIONED TO FLOATING SUPINE. NO FURTHER ASSISTANCE AT THIS TIME.
--- NOTE | 2021-01-30 07:30 | NUR ---
REPORT RECEIVED FROM NIGHT RN AND PT. CARE RESUMED. PT IN BED, ALERT AND ORIENTED TO SELF AND PLACE. FLAT AFFECT, SLOW TO RESPOND. CURRENTLY POSITIONED FLOATED ON PILLOWS BOTH SIDES. IV SITE WNL AND FLUSHES. LUNGS DIM. IN BASES. +2 PITTING EDEMA PRESENT WITH BRUISING IN LEFT LEG AND IS PAINFUL TO TOUCH. SKIN DRESSINGS TO ARMS, COCYX, THORACIC SPINE ARE INTACT AND NO NEW SKIN ISSUES NOTED. HEEL PROTECTORS IN PLACE AND NO CHANGES TO HEELS NOTED. PT. ASSISTED WITH REPOSITIONING AND LEFT RESTING IN BED WITH CALL LIGHT IN REACH AND CURTAIN OPEN.
--- NOTE | 2021-01-30 08:44 | NUR ---
PATIENT SITTING UP IN BED, ATE SMALL AMOUNT OF BREAKFAST. CUP OF TEA PROVIDED PERREQUEST. PATIENT AGREED TO BEDBATH LATER TODAY. CALL LIGHT AND PERSONAL ITEMS WITHIN REACH
--- NOTE | 2021-01-30 11:00 | NUR ---
Spoke with Ashlie from [facility]. They will accept this pt today and transport, as spouse has difficulty getting pt in the car. She asks if pt has been vacinated as visitation has changed, if vaccinated, pt may forgo 14 day isolation and have visitors. Checked with pt and they have both been vaccinated and have their cards. Brochure for [facility] given to spouse with address and phone numbers. Pt will dc today at 1500 per [facility] transport wc van. Chart faxed to [facility] with orders, PASSR, covid test, progress notes, PT/OT notes. Copy placed in chart.
--- NOTE | 2021-01-30 11:10 | NUR ---
BEDBATH GIVEN, PATIENT INCONT OF SMALL AMOUNT OF STOOL. NEW GOWN ON, BRIEF CHANGED. CALL LIGHT AND PERSONAL ITEM IN REACH
--- NOTE | 2021-01-30 11:25 | NUR ---
PATIENT ASSISTED WITH A BED BATH AND HAIR SHAMPOOED. SHE HAD A SMALL, FORMED BM. ATTENDS CHANGED AND BARRIER CREAM APPLIED. CASTILLO CARE PERFORMED AND RITA AREA SLIGHTLY REDDENED. HER BACK IS UNCHANGED SINCE THIS MORNING WITH ALLEVYN ON THORACIC SPINE AND COCYX AREA. PT. REPOSITIONED IN BED AND LEFT RESTING WITH CALL LIGHT IN REACH AND CURTAIN OPEN.
[2021-01-30] MEDS ORDERED: METOPROLOL SUC100 MG PO (13:07)
--- NOTE | 2021-01-30 14:32 | NUR ---
VITALS AND I&OS CHARTED. PATIENT INCONTINENT OF STOOL. COMPLETE BED CHANGE. NOW DRESSED IN PERSONAL CLOTHES WAITING FOR D/C. CASTILLO EMPTIED, PERSONAL ITEMS AND CALL LIGHT WITHIN REACH
--- NOTE | 2021-01-30 14:35 | NUR ---
PATIENT HAD A LARGE INCONTINENT BM. ATTENDS CHANGED, CLEANED AND BARRIER CREAM APPLIED. ALLEVYN DRESSING REMOVED FROM THORACIC SPINE AND COCYX DUE TO SOILING. PHOTOS TAKEN AND NO CHANGES NOTED TO INJURIES. DRESSING ON RIGHT ELBOW REPLACED PER ORDERS. LUNGS DIM. IN THE BASES. 02 SAT IS 94% ON RA. LT. LEG IS UNCHANGED WITH +2 EDEMA, BRUISING AND TENDER TO TOUCH. IV SITE WNL. PT. LEFT RESTING IN BED WITH CALL LIGHT IN REACH.
--- NOTE | 2021-01-30 14:45 | NUR ---
PATIENT TRANSFERRED TO [facility] AND LEFT VIA WHEELCHAIR. VITALS STABLE AND DENIES PAIN. LEFT WITH TRANSPORTER AND WITH ALL BELONGINGS.
== END 2021-01-30 14:50 | DRG 682 ==
LOC: ED 11:16 → MS 17:25 → CCU 17:25 → MS 01-28 16:24
PROVIDERS: ADMIT Student in an Organized Health Care Education/Training Program; ATTEND Student in an Organized Health Care Education/Training Program
PROC: 30233N1 Transfusion of Nonautologous Red Blood Cells into Peripheral Vein, Percutaneous Approach (ICD-10-PCS; principal; 2021-01-27)
DX: N17.9 Acute kidney failure, unspecified (principal); G93.41 Metabolic encephalopathy; E87.1 Hypo-osmolality and hyponatremia; K92.2 Gastrointestinal hemorrhage, unspecified; J67.9 Hypersensitivity pneumonitis due to unspecified organic dust; I82.402 Acute embolism and thrombosis of unspecified deep veins of left lower extremity; E87.2 Acidosis; Z20.822 Contact with and (suspected) exposure to COVID-19; E86.0 Dehydration; E87.5 Hyperkalemia; D50.0 Iron deficiency anemia secondary to blood loss (chronic); I27.20 Pulmonary hypertension, unspecified; I07.1 Rheumatic tricuspid insufficiency; G35 Multiple sclerosis; R33.9 Retention of urine, unspecified; L98.499 Non-pressure chronic ulcer of skin of other sites with unspecified severity; F03.90 Unspecified dementia, unspecified severity, without behavioral disturbance, psychotic disturbance, mood disturbance, and anxiety; K22.2 Esophageal obstruction; Z87.440 Personal history of urinary (tract) infections; Z88.2 Allergy status to sulfonamides; Z88.1 Allergy status to other antibiotic agents; Z79.899 Other long term (current) drug therapy; Z79.2 Long term (current) use of antibiotics; Z79.52 Long term (current) use of systemic steroids
CPT/HCPCS: 36415; 70450; 71045; 72125; 73502; 73560; 73600; 80048; 80053; 81001; 83605; 83735; 84484; 85018; 85025; 86850; 86900; 86901; 86920; 93005; 93010; 93971; 94640; 97165; C9803; J0696; J1650; J7040; J7121; J7500; J7512; P9016; U0003

== ENCOUNTER 2021-05-19 17:40 | Observation (INO) | payer MEDICARE, BC ==
[~2021-05-19] VITALS: Ht 154.9 cm; Wt 38.8 kg
[~2021-05-19 17:40] MED LIST changes: +AVONEX30 MCG/0.5 IM; +CEPHALEXIN500 MG PO
--- OUTSIDE RECORDS SUMMARY | 2021-05-19 17:46 | XMS ---
PreManage Notification: MALIHA MAY Security Head Golf Coach Events No recent Security Events currently on file CRITERIA MET - [facility] - Has Care Guidelines CARE PROVIDERS REBEKA SIULM Internal Medicine 11/05/2020-Current PHONE: Unknown Hero has no Care Guidelines for this patient. Care History Medical/Surgical 11/05/2020 [facility] Appropriate use of ED - head wound due to fall.\T\nbsp; Patient advised to follow up with PCP, Dr. Siu. Spouse having trouble keeping up with caregiving.\T\nbsp; Advised of respite options. 08/20/2020 [facility] Patient was seen by PCP Dr. Siu on 08/19/2020 at 2:30 pm and was transferred to ED for tachycardia of 154.\T\nbsp; No follow up visit scheduled yet. 03/26/2020 [facility] Patient\T\#39;s spouse stated patient has not been taking meds as she should and is now giving and monitoring them. Patient waiting for lab results and call back from PCP Dr. Siu to determine further treatment options. E.D. VISIT COUNT ([address] MO[address] [facility] 1 [facility] 8 [facility] TOTAL 10 NOTE: Visits indicate total known visits. ED/UCC VISIT TRACKING (12 MO.) 05/19/2021 17:41 [facility] TYPE: Emergency COMPLAINT: - SOB 04/11/2021 10:26 [facility] TYPE: Emergency DIAGNOSES: - Feeding Tube Problem - Other mechanical complication of other gastrointestinal prosthetic devices, implants and grafts, initial encounter - Feeding tube is clogged 02/16/2021 19:58 [facility] [place] TYPE: Emergency COMPLAINT: - shortness of breath DIAGNOSES: - shortness of breath 01/27/2021 11:18 [facility] TYPE: Emergency [...] Personal history of nicotine dependence - Other lobsterman (current) drug therapy - Laceration without foreign body of left forearm, initial encounter - Allergy status to other antibiotic agents - Unspecified injury of head, initial encounter - Heart failure, unspecified 10/14/2020 12:32 [facility] TYPE: Emergency COMPLAINT: - WEAKNESS,CONFUSION 08/19/2020 15:02 [facility] TYPE: Emergency COMPLAINT: - HIGH HEART RATE DIAGNOSES: - Allergy status to other antibiotic agents - Other group home (current) drug therapy - long-term (current) use of systemic steroids - Allergy status to sulfonamides - Urinary tract infection, site not specified - Hypertensive heart disease with heart failure - Allergy status to sulfonamides - Tachycardia, unspecified - Allergy status to other antibiotic agents - Dehydration - Heart failure, unspecified 07/21/2020 08:43 [facility] TYPE: Emergency COMPLAINT: - WEAKNESS DIAGNOSES: - Palpitations - moth exterminator (current) use of systemic steroids - Allergy status to sulfonamides - Weakness - Heart failure, unspecified - Other lobsterman (current) drug therapy - Hypertensive heart disease with heart failure - Allergy status to sulfonamides - Allergy status to other antibiotic agents - Allergy status to other antibiotic agents 07/07/2020 00:12 [facility] TYPE: Emergency COMPLAINT: - DIFFICULTY WALKING 06/27/2020 16:47 [facility] TYPE: Emergency COMPLAINT: - CHEST PAIN DIAGNOSES: - Personal history of nicotine dependence - moth exterminator (current) use of systemic steroids - Other group home (current) drug therapy - Dyskinesia of esophagus - Chest pain, unspecified - Allergy status to sulfonamides - Allergy status to other antibiotic agents INPATIENT VISIT TRACKING (12 MO.) 02/16/2021 19:58 [facility] [place] TYPE: Medical Surgical DIAGNOSES: - Hypoxemia - Pneumonitis due to inhalation of food and vomit 01/27/2021 17:25 [facility] TYPE: Medical Surgical COMPLAINT: - WEAKNESS DIAGNOSES: - Allergy status to sulfonamides - Allergy status to other antibiotic agents - Iron deficiency anemia secondary to blood loss (chronic) - Acidosis - Other lobsterman (current) drug therapy - Pulmonary hypertension, unspecified - Rheumatic tricuspid insufficiency - Personal history of urinary (tract) infections - Acute kidney failure, unspecified - Acute embolism and thrombosis of unspecified deep veins of left lower extremity - Hyperkalemia - Unspecified dementia without behavioral disturbance - Metabolic encephalopathy - Multiple sclerosis - Dehydration - Non-pressure chronic ulcer of skin of other sites with unspecified severity - long-term (current) use of antibiotics - Hypo-osmolality and hyponatremia - 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 - Gastrointestinal hemorrhage, unspecified - Retention of urine, unspecified - long-term (current) use of systemic steroids - Esophageal obstruction 10/14/2020 17:00 [facility] TYPE: Medical Surgical COMPLAINT: - ALTERED MENTAL STATUS DIAGNOSES: - 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
--- NOTE | 2021-05-19 23:03 | NUR ---
pt ARRIVES FROM ER VIA STRETCHER. TRANSFERRED TO HOSPITAL BED WITH 4PA. pt NON-VERBAL. OPENS EYES TO VOICE. INCONTINENT OF SMALL AMT STOOL, ATTENDS CHANGED. CASTILLO DRAINING YELLOW CONCENTRATED URINE. MD IN ROOM ASSESSING pt. SKIN BREAKDOWN NOTED ON COCCYX, RIGHT BUTTOCK, LEFT LATERAL MAR. WARM BLANKET PROVIDED. FAMILY AT BEDSIDE AT THIS TIME. COFFE, SANDWICHES, SNACKS PROVIDED BY FINANCIAL ASSOCIATE RN. pt ON RA, BREATHING IS NON-LABORED. LUNG SOUNDS CLEAR, DIMINISHED IN BASES BILATERALLY. FAMILY INSTRUCTED TO USE CALL LIGHT FOR ANY NEEDS.
--- NOTE | 2021-05-20 00:44 | NUR ---
CHECKED ON pt. RESTING IN BED WITH EYES CLOSED. RR 20. NO DISTRESS NOTED. ON RA. ASLEEP IN CHAIR, AWAKENS WHEN RN ENTERS ROOM. COUCH MADE UP FOR , HAS DECIDED TO STAY THE NIGHT. NO ADDITIONAL REQUESTS.
--- NOTE | 2021-05-20 01:56 | NUR ---
pt REPOSITIONED IN BED TO FLOATING WITH PILLOWS UNDER HIPS BILATERALLY, COLLECTIONS ATTORNEY SINTA ASSIST. pt DOES NOT OPEN EYES TO TOUCH, VOICE. RR 24, SHALLOW BREATHING NOTED. CASTILLO EMPTIED, 300 MLS CONCENTRATED YELLOW URINE. SLEEPING ON COUCH.
--- NOTE | 2021-05-20 04:09 | NUR ---
CHECKED ON pt. RESTING IN BED WITH EYES CLOSED, BREATHING UNLABORED. LIGHTS OFF IN ROOM.
--- NOTE | 2021-05-20 05:10 | NUR ---
CHECKED ON pt. pt RESTING IN BED ON BACK, EYES CLOSED. RR 24. AT BEDSIDE AWAKE. COFFEE PROVIDED REQUESTED.
--- NOTE | 2021-05-20 05:24 | NUR ---
pt SLEEPING, BREATHING SHALLOW AND UNLABORED. REPOSITIONED TO RIGHT SIDE WITH PILLOWS UNDER LEFT HIP, LEGS ELEVATED. ALARM ADJUSTER RN ASSIST WITH REPOSITIONING. AT BEDSIDE. NO NEEDS AT THIS TIME.
--- NOTE | 2021-05-20 07:34 | NUR ---
REPORT RECEIVED AT BEDSIDE. PT LYING IN BED ON LEFT SIDE. REPOSITIONED TO RIGHT SIDE. PT IS HOT TO THE TOUCH AND DIAPHORETIC. BLANKETS REMOVED AND SHEET PLACED, TEMPURATURE IN ROOM DECREASED. RESPIRATIONS EQUAL AND SHALLOW. RR COUNTED AT 29. VISIBLE FROM NURSING STATION.
--- NOTE | 2021-05-20 07:49 | NUR ---
Called and spoke with [facility] and they are not currently covering [place]. Milka from Hospice suggested [facility]. I was able to reach an answering service at [facility]. She was not sure if they cover [place] area, staff will be in at 0830 and I will call back at that time.
--- NOTE | 2021-05-20 08:25 | NUR ---
PT WAS ASLEEP IN BED. UPDATED WHITEBOARD. WILL COME BACK LATER FOR AM CARE. NO FURTHER NEEDS AT THIS TIME. ELIZABETH VICENTE NOTIFIED THIS CLINICAL SALES CONSULTANT THAT PT WAS TURNED AT SHIFT CHANGE 0700, THIS CLINICAL SALES CONSULTANT PLANS TO TURN PT AGAIN AT 0900.
--- NOTE | 2021-05-20 09:00 | NUR ---
Called and spoke with [facility] from [facility], and [facility]. All state they do not provide Hospice service to [place]. Will update family.
--- NOTE | 2021-05-20 09:37 | NUR ---
SPOKE WITH DR LANDA REGARDING PT REQUESTING JUICE. PT STATES SHE HAS NOT BEEN DRINKING AT HOME AND DR FEELS SHE SHOULD BE NPO DUE TO ASP RISK. EXPLAINED TO PT.
--- NOTE | 2021-05-20 10:00 | NUR ---
THIS NURSE TO BEDSIDE TO ASSESS PT. PT IS AWAKE IN BED WITH FAMILY MEMBER AT BEDSIDE. CHALK MOLDING MACHINE OPERATOR REPROTS PT GRIMACED IN PAIN WHILE MOVING ARMS WITH REPOSITIONING. 2MG MORPHINE ADMISNTERED. PT HAS WEAK NON-PRODUCTIVE COUGH. SUCTION PLACED AT BEDSIDE AND FAMILY MEMBER INSTRUCTED ON USE. PT STATES SHE DOES NOT LIKE HEEL PILLOWS ON ELBOWS, REMOVED LEFT PILLOW AND REPOSITIONED RIGHT PILLOW. PT SAYS SHE IS COMFORTABLE NOW. CALL LIGHT IN REACH. RR IS 24. HEELS FLOATED ON PILLOW. FAMILY MEMBERS QUESTIONS ANSWERED. DENEIS NO OTHER NEEDS.
--- NOTE | 2021-05-20 10:55 | NUR ---
PT WITH INCREASED SECREATIONS IN BACK OF THROAT. ATROPINE ADMINSTERED PER FAMILY REQUEST. SUCTION PROVIDED. PT REPORT PAIN IN ELBOW IS MUCH IMPROVED. REPOSITIONED NECK PILLOW PER PT REQUEST. CALL LIGHT IN REACH. WATER PROVIDED TO FAMILY
[2021-05-20] MEDS ORDERED: OMEPRAZOLE40 MG PO (11:09)
[2021-05-20] MEDS ORDERED: GABAPENTIN300 MG PO (11:11)
--- NOTE | 2021-05-20 11:53 | NUR ---
PATIENT AWAKE IN BED. PT TURNED IN BED WITH PILLOWS. BRIEF CHANGE DONE. ORAL CARE PERFORMED. FAMILY IN ROOM VISITING. NO FURTHER NEEDS AT THIS TIME.
--- NOTE | 2021-05-20 12:47 | NUR ---
Spoke with pts spouse, daughter in law, and son. Updated I have called all the Hospices in our area and no one services [place]. We discussed options of pt admitting to [facility] in [place] with hospice, going to [place] with son and having hospice, or going home with spouse on comfort care without hospice. Spouse states they do not have funds for RIVKA, pt cannot go with son as he and both work and cannot quit their jobs, spouse cannot go to [place] to care for as he has dogs he takes care of, Spouse will take pt home and care for her at his home. Discussed needs, spouse states they have been attempting to get a new mattress for hospital bed for months and have not been able to do so. We discussed comfort meds and I will discuss with hospitalist. Reviewed with family routine to follow of turning pt q 2-3 hours, swabbing mouth, medicating, checking depends to make sure she is clean and dry. Family state they would like to stop all meds and tube feeds, as pt aspirated yesterday with feeding. Informed I call and find which DME has orders for mattress, discuss meds and stop order for meds and feeding with hospitalist and get back with them.
--- NOTE | 2021-05-20 13:00 | NUR ---
Called and spoke with Flavia at [facility]. Tennille is a patient and they have the order for a mattress. It was sent to Dr. Reid, but [place] and has not been signed. Informeded if they will send the order to me, I will have hospitalist sign it.
--- NOTE | 2021-05-20 13:10 | NUR ---
Called and spoke with [facility]. Pts pcp, Dr. Loera, is out of the office for two weeks. Asked if someone is covering if they could write orders for comofort meds for family to have filled. They will speak with Dr. Krishnan and call me back.
--- NOTE | 2021-05-20 13:16 | NUR ---
ROUNDED ON PATIENT AND FAMILY IN ROOM. NO CONCERNS OR NEEDS AT THIS TIME. PT APPEARS COMFORTABLE WITH EYES CLOSED AND RESPITORY RATE OF 24.
--- NOTE | 2021-05-20 13:46 | NUR ---
Checked with nursing station about PT but PT was not responsive. At 0921 I got called from [facility] saying PT was requesting me. As I arrived PT's [id number] was arriving. We arrived to PT awake but not talking besides answers questions with yes or no. PT is on comfort care. PT welcomed my prayer for her and seemed relaxed afterwards. I visiting with PT and DIL and let them know I would check back. I had been with this family last night in the ED. I stopped back to give the PT a prayer shawl and DIL a Guidepost. PT's son and were on their way so I let her know I would be back. I saw PT's in the eubanks and updated him on PT's status. He shared concerns for needing hospice care if they were bringing PT home. I let him know I would look into it as well. I talk with doctor on duty and found out they were working on getting PT the care needed. Met with family again and talked through the options and what to do next time. PT's son and DIL welcomed prayer and thanked me for my serive. I let them know I would be on-call tonight if needed.
--- NOTE | 2021-05-20 13:48 | NUR ---
Received call from [facility] [place], they want to know what time spouse will be home and they can deliver the mattress. Spoke with spouse and he will be home by 4. Called Almaz at [facility] and she will meet spouse with mattress.
--- NOTE | 2021-05-20 15:00 | NUR ---
ROUNDED ON PT. PT IN BED WITH EYES CLOSED. RR 24. NO SIGNS OF DISTRESS. FAMILY AT BEDSIDE. CALL LIGHT IN REACH
--- NOTE | 2021-05-20 15:48 | NUR ---
Milton Haley RN. Asked if Dr. Krishnan is willing to write orders. He responded he will need to check with her in the AM. Updated, Hospice does not go to [place]. Will need prescriptions before pt discharges to home as family will need to have filled at a pharmacy in town as [place].
--- NOTE | 2021-05-20 16:11 | NUR ---
spoke with family and pt regarding current pain, administered 5mg sl morphine.
--- NOTE | 2021-05-20 17:00 | NUR ---
ROUNDED ON PT TO REASSESS PAIN. PT IS ASLEEP AND APPEARS COMFORTABLE. FAMILY AGREES. RR 24. FAMILY WITH NO NEEDS. CALL LIGHT IN REACH
--- NOTE | 2021-05-20 20:09 | NUR ---
on room air, answsers to name, moving arms and open eyes, medicated prior to repositioning
--- NOTE | 2021-05-20 21:02 | NUR ---
turned to L side, cooperative, on room air, calm, sl L FA, patent. f/c with scant amount of dark yellow urine. mouth care done. all procedures explained to pt. son in room. Pt on comfort care. pt's son in room.
--- NOTE | 2021-05-20 23:50 | NUR ---
tURNED, COOP, NO DISTRESS,COMFORT CARE, F/C IN PLACE, SCANT AMOUNT OF DARK URINE, SON IN ROOM,
--- NOTE | 2021-05-21 02:57 | NUR ---
pt REPOSITIONED TO FLOATING WITH PILLOWS UNDER HIPS BILATERALLY. MEDICAL APPARATUS MODEL MAKER NATY ASSIST. pt PROVIDED WITH MOUTH SWAB REQUESTED. pt DENIES ANY PAIN OR DISCOMFORT. SON AT BEDSIDE.
--- NOTE | 2021-05-21 05:28 | NUR ---
pt continues on comfort care, was medicated earlier per comfort prior to turning, has been turned q2-3hrs, has tolerated well. opens eyes, said good morning and answered yes during some procedures. f/c paten, draining low urine output, total 100cc for this whole shift. md aware, NPO. mouth care and f/c care done. attends in place, lanie martinez. s/ patent. family in room
--- NOTE | 2021-05-21 07:14 | NUR ---
REPORT RECEIVED FROM ELIZABETH GARCIA. PT RESTING IN BED ON LEFT SIDE, SUPPORTED WITH PILLOWS. PT GREETS THIS RN WITH "GOOD MORNING." PT STATES "YES" WHEN ASKED IF SHE IS HAVING PAIN. ATTEMPTS TO CLARIFY WHERE PAIN IS, LANGUAGE UNCLEAR. PT UNABLE TO RATE PAIN. SEE MAR FOR MEDICATION GIVEN. PTS FAMILY AT BEDSIDE. CALL LIGHT WITHIN REACH. BED RAILS UP.
--- NOTE | 2021-05-21 08:15 | NUR ---
MED REC COMPLETE
--- NOTE | 2021-05-21 08:30 | NUR ---
Discussed with Dr. Mayen need for comfort meds for pt to dc to home with spouse today. He agrees and will complete RX.
--- NOTE | 2021-05-21 09:00 | NUR ---
In and spoke with daughter in law, Polly. UPdated will write orders for comfort meds. Asked if mattress for bed was delivered last night and she states it was. Notified by Polly they no longer want to take Gabi to [place], but now are wanting to take her to [place] to their home on hospice. They will take her to their home, but must have Hospice set up. Informed pt is being discharge today, we can send her to their home. I will contact the Hospice closes their home and ask if they will accept her. Updated Hospice have been over run with pts and at times it has taken them 3 weeks to get into a pts home. I will work with them to get Hospice set up, but it may take awhile. Understanding stated. Asked if they would like pt to go by EMS, and they want to only if it is paid. They called [employer] and they will not pay for transport. Discussed possibilty of Medicare paying, but let her know, Medicare has the right to refuse payment even if she calls and they authorize payment. Its never an assured thing, Medicare will pay for transport. Returned to my office and contacted [facility] in [place]. They request the chart and order. Called pcp office and requested notes for last year. Face sheet, order, H&P, DC summary, notes from PCP office faxed to [facility].
--- NOTE | 2021-05-21 09:15 | NUR ---
Received call from Dr. Krishnan. Updated family now want to take pt to [place] [facility]. ASked if she could send me the chart notes from Dr. Gandhi PCP for the last year. She faxed as we were speaking.
--- NOTE | 2021-05-21 09:15 | NUR ---
MORNING ASSESSMENT DUE. PTS FAMILY REQUESTS ADDIITONAL PAIN MEDICATION. THIS RN TO ROOM. PT RESTING ON LEFT SIDE. EYES OPEN. PT STATES "YES" WHEN ASKED ABOUT PAIN, UNABLE TO FURTHER CLARIFY PAIN LOCATION OR INTENSITY. 3/10 ON FACES SCALE. SEE MAR FOR MEDICATION GIVEN. ASSESSMENT DONE: IV WNL WITH NO S/S OF PHELBITIS NOTED, FLUSHED PER PROTOCOL. ALCOHOL CAP APPLIED. RASS SCORE OF -1 WITH PT DOZING ON AND OFF. RR OF 24 AT THIS TIME. UNLABORED, OCCATIONAL MOIST COUGH NOTED. LUNG SONDS CLEAR TO ASCULATION. SUCTION USED, ORAL CARE PROVIDED WITH SUCTION. PT TOELRATED ORAL CARE WELL. MINIMAL DRAINGE NOTED IN CASTILLO CATHETER BAG. CATHETER CARE WNL. FACE WASHED, PT REPOSITIONED TO RIGHT SIDE, SUPPORTED WITH PILLOWS. EYEDROPS PROVIDED, CHAPSTICK APPLIED. PT RESTING WITH EYES CLOSED. WARM BLANKETS PROVIDED. CALL LIGHT WITHIN REACH. FAMILY AT BEDSIDE. SIGN LANGUAGE INTERPRETER, MATEO, TALKING WITH FAMILY.
[2021-05-21] MEDS ORDERED: ATROPINE SULFATE2 ML SL (09:17)
[2021-05-21] MEDS ORDERED: LORAZEPAM INT2 MG/ML PO (09:17)
[2021-05-21] MEDS ORDERED: ONDANSETRON ODT4 MG SL (09:17)
[2021-05-21] MEDS ORDERED: MORPHINE S100 MG/5 M SL (09:17)
--- NOTE | 2021-05-21 10:50 | NUR ---
THIS RN TO ROOM TO CHECK ON PT. BED BATH PREPARED. PT PRE MEDICATED WITH 2MG MORPHINE PRIOR TO BED BATH. BED BATH COMPLETED WITH HELP FROM RONNY CH. RITA CARE AND CATHETER CARE PERFORMED. DRY SHAMPOO CAP USED. PTS HAIR COMBED. ALLEVYN APPLIED TO COCCYX AND SCARUM, 1CM RAW SORE SPOT X2 NOTED ON COCCYX. EDUCATION DONE WITH PTS FAMILY REGARDING ADL CARES. CHAP STICK APPLIED. PT REPOSITIONED TO BACK WITH HEAD OF BED ELEVATED TO 30 DEGREES. BED RAILS UP. CALL LIGHT WITHIN REACH. FLACC SCORE OF 0/10 AT THIS TIME. PT RESTING WITH EYES CLOSED, RESPIRATIONS EVEN AND UNLABORED. FAMILY AT BEDSIDE.
--- NOTE | 2021-05-21 11:43 | NUR ---
Updated Polly, I am awaiting call from Hospice. Reviewed services hospice provide and discussed pt will not return to the hospital but they will call hospice. She states understanding and is aware of this. Informed I will let her know as soon as I hear from anyone.
--- NOTE | 2021-05-21 11:57 | NUR ---
Received phone message from Miriam at [facility]. Atttempted to return call and was notified she was not in and they would message her.
--- NOTE | 2021-05-21 12:43 | NUR ---
THIS RN TO ROOM TO CHECK ON PT. PT RESTING WITH EYES CLOSED. NO SIGNS OF DICOMFORT. PT AWAKENS TO LIGHT TOUCH. PT REPOSITIONED TO LEFT SIDE, SUPPORTED WITH PILLOWS. PT STATES "NO" WHEN ASKED IF SHE IS HAVING PAIN. PTS DAUGHTER IN LAW CONFIRMS THAT PT SEEMS COMFORTABLE WITH NO ADDITIONAL NEEDS AT THIS TIME. PT RESTING AGAIN WITH EYES CLOSED. HEAD OF BED ELEVATED TO 30 DEGREES. CALL LIGHT WITHIN REACH. BED RAILS UP. DAUGHTER IN LAW AT BEDSIDE. FAMILY UPDATED BY MATEO, CASE MANAGEMENT, REGARDING HOSPICE AT HOME AND PENDING TRANSFER BACK TO HOME.
--- NOTE | 2021-05-21 14:00 | NUR ---
Received call from Miriam at Hospice. They have had a cancellation and want to know if pt can dc now and arrive by 4 pm. Their nurse will meet them this afternoon to admit to hospice. Spoke with Jarett. They state they can leave as soon as needed. Dr Mayne notified and dc orders completed. Orders from hospice arrive and signed by Dr. Mayen and faxed to Hospice. [facility] I again asked family if they would like pt transported by EMS. Spouse and son both feel they would rather transport than pay the cost of an ambulance.
--- NOTE | 2021-05-21 14:58 | NUR ---
PT READY FOR DISCHARGE. DISCAHRE PACKET REVEIWED WITH FAMILY (PTS DAUGHTER IN LAW AND ). FAMILY STATES THEIR QUESTONS HAVE BEEN ANSWERED. IV DC'D BY ELIZABETH VICENTE. PT TO REMAIN IN HOSPITAL CLOTHING. PT TRANSFERED TO WHEELCHAIR WITH [employer] LIFT AND TAKEN OUT SIDE TO MEET FAMILY AT CAR. PAIN MEDICAITON GIVEN IN ANTICIPATION OF TRAVEL AND POSITIONING. NO ADDITIONAL REQUESTS OR CONCERNS.
--- NOTE | 2021-05-21 15:10 | NUR ---
Pt loaded into Polly's SUV with 4 person assist and positioned head with pillows and covered with blanket. Pt is awake and tolerted well.
== END 2021-05-21 15:10 | disposition home or self-care (01) ==
LOC: ED 17:40 → MS 17:42
PROVIDERS: ADMIT Internal Medicine; ATTEND Internal Medicine
DX: R06.03 Acute respiratory distress (principal); J84.10 Pulmonary fibrosis, unspecified; I27.20 Pulmonary hypertension, unspecified; J67.9 Hypersensitivity pneumonitis due to unspecified organic dust; G35 Multiple sclerosis; I07.1 Rheumatic tricuspid insufficiency; M19.90 Unspecified osteoarthritis, unspecified site; I50.9 Heart failure, unspecified; Z51.5 Encounter for palliative care; Z93.1 Gastrostomy status; Z96.0 Presence of urogenital implants; Z74.01 Bed confinement status; Z88.2 Allergy status to sulfonamides; Z88.1 Allergy status to other antibiotic agents; Z79.899 Other long term (current) drug therapy; Z79.52 Long term (current) use of systemic steroids; Z20.822 Contact with and (suspected) exposure to COVID-19
CPT/HCPCS: 71045; 94660; 96374; 96376; 99285-25; C9803; G0378; J2270; U0003